=== PATIENT | female | born 1985 | race Caucasian/White ===

== ENCOUNTER 2023-09-02 08:13 | Emergency (ER) | payer OTHER, SELFPAY ==
[2023-09-02 08:25] VITALS: BP 135/86; PULSE 83; RESP 16; TEMP 36.3; O2SAT 99; BMI 23.4
--- NOTE | 2023-09-02 08:50 | ED_ITS ---
HPI - General Adult General Date Seen: 09/02/23 Chief complaint: Weakness Stated complaint: trouble breathing Time Seen by Provider: 09/02/23 08:18 Source: patient and family (Mother) Mode of arrival: ambulatory Limitations: no limitations History of Present Illness HPI narrative: Patient is a 38-year-old female presenting to emergency department for fatigue, inability to sleep. She states over the past 4 days she has been having difficulty sleeping and has not had much of an appetite. She has her mother states the patient has had upper respiratory symptoms since sinusitis for the pa st 2 weeks and was started on Augmentin yesterday. The patient's mother thinks there has been improvement. The patient states she is not things related to her upper respiratory infection at all it is states her breathing is upside down.Patient had chronic pain and was started on this breathing exercise called breathing connective work. She was started on this by her physical therapist. She states it has help with the chronic pain. Last night she was having diffuse body pain and took a muscle relaxer and she feels like everything is upside down. She states that now when she breathes it feels like her diaphragm and lungs are backwards and when she breathes everything goes down instead of up. She has tried to explain her symptoms today multiple times but improving difficulty understanding exactly what she is trying to say. Patient does states she is feeling a lot of anxiety and feels like she needs something for her anxiety. Related Data Home Medications Medication Instructions Recorded Confirmed amoxicillin-pot clavulanate .ROUTE 09/02/23 cyclobenzaprine 5 mg tablet 5 mg PO 3XD PRN 09/02/23 09/02/23 Previous Rx's Medication Instructions Recorded alprazolam 0.5 mg tablet (Xanax) 0.5 mg PO BID PRN #7 tabs 09/02/23 zolpidem 5 mg tablet (Ambien) 5 mg PO QHS #7 tabs 09/02/23 Allergies Allergy/AdvReac Type Severity Reaction Status Date / Time No Known Drug Allergies Allergy Verified 09/02/23 08:23 Review of Systems Status of ROS: Reports: 10 or more systems reviewed and unremarkable except as noted in History and below PFSH PFSH Social History Smoking Status: Never smoker Do you use any of these nicotine containing products: None Second hand tobacco smoke exposure: No How often do you have a drink containing alcohol: monthly or less How many standard drinks containing alcohol do you have on a typical day: 1 or 2 How often do you have six or more drinks on one occasion: Never AUDIT-C Alcohol total score: 1 Non-prescribed substance use: denies use service: No Exam Narrative: Exam Narrative: Const: Well-nourished, Well-developed, in mild distress Eyes: PERRL, no conjunctival injection, and symmetrical lids HENT: Atraumatic external nose and ears. Moist mucous membranes. Neck: Symmetric, trachea midline, No thyromegaly. CVS: RRR, No murmurs or gallops. Peripheral pulses 2+ and equal in all extremities RESP: Unlabored respiratory effort. Clear to auscultation bilaterally. GI: Nontender/Nondistended, No rebound or guarding. MSK:Extremities w/o deformity, Normal Active ROM Skin: Warm, Dry. No rashes or lesions. Neuro: Normal Muscle tone, No focal neurological deficits. Psych: Awake, Alert, & Oriented x3. Appropriate mood and affect. Const: Vital Signs, click to edit/add: Vital Signs - 24 hr 09/02/23 08:25 09/02/23 10:52 Temperature 97.4 F L 97.4 F L Pulse Rate [Pulse Oximeter] 83 83 Respiratory Rate 16 16 Blood Pressure [Ri ght Upper Arm] 135/86 135/86 Pulse Oximetry 99 Oxygen Delivery Me thod Room Air Course Vital Signs Vital signs: Initial Vital Signs Temperature 97.4 F L 09/02/23 08:25 Temperature Source Temporal Artery Scan 09/02/23 08:25 Pulse Rate 83 09/02/23 08:25 Pulse Rhythm Regular 09/02/23 08:25 Respiratory Rate 16 09/02/23 08:25 Blood Pressure 135/86 09/02/23 08:25 Blood Pressure Mean 102 09/02/23 08:25 Blood Pressure Position Supine 09/02/23 08:25 Pulse Oximetry 99 09/02/23 08:25 Oxygen Delivery Method Room Air 09/02/23 08:25 Vital Signs Temperature 97.4 F L 09/02/23 08:25 Pulse Rate 83 09/02/23 08:25 Respiratory Rate 16 09/02/23 08:25 Blood Pressure 135/86 09/02/23 08:25 Pulse Oximetry 99 09/02/23 08:25 Oxygen Delivery Method Room Air 09/02/23 08:25 Temperature 97.4 F L 09/02/23 10:52 Pulse Rate 83 09/02/23 10:52 Respiratory Rate 16 09/02/23 10:52 Blood Pressure 135/86 09/02/23 10:52 Pulse Oximetry 99 09/02/23 08:25 Oxygen Delivery Method Room Air 09/02/23 08:25 Medications Administered Medications: Discontinued Medications Generic Name Dose Route Start Last Admin Trade Name Jason PRN Reason Stop Dose Admin Lorazepam 0.5 mg 09/02/23 08:47 09/02/23 08:55 Lorazepam 0.5 Mg Tablet PO 09/02/23 08:48 0.5 mg ONCE ONE Administration Medical Decision Making MDM Narrative Medical decision making narrative: Patient is a 38-year-old female presenting for what sounds like is a chief complaint of anxiety. It is difficult to fully determine what she is concerned about but she did specifically states she is feeling anxious and wants that addressed. His breathing issues she is describing is difficult to comprehend at this time and her vitals are stable with normal lung sounds. We will do a CBC and BMP along with given Ativan for her anxiety. After the Ativan she is feeling less anxious was still states he is unable to sleep. CBC BMP showed no concerning findings. At this point I am not sure what is causing her symptoms. It seems like the main issue is insomnia and anxiety. Initially was given a script for a few pills of Ativan but she states she prefer Xanax based on her family members doing better on Xanax. Also give her 7 days of Ambien. She needs to follow up with her primary care provider. She is aware of this. She will be discharged home. Lab Data Labs: Lab Results 09/02/23 Range/Units 09:00 WBC 8.02 (4.50-11.00) K/uL RBC 4.85 (4.00-5.20) m/uL Hgb 13.0 (12.0-16.0) gm/dL Hct 39.8 (33.0-51.0) % MCV 82 (80-100) fL MCH 27 (26-34) pg MCHC 33 (32-36) gm/dL RDW Coeff of Camila 13.9 (11.5-15.5) % Plt Count 316 (140-440) K/uL Neut % (Auto) 69.1 (42.0-72.0) % Lymph % (Auto) 20.4 (20-44) % Grant % (Auto) 9.9 (0.0-11.0) % Eos % (Auto) 0.2 (0.0-7.0) % Baso % (Auto) 0.2 (0.0-3.0) % Neut # (Auto) 5.53 (1.7-7.0) K/uL Lymph # (Auto) 1.64 (0.90-2.90) K/uL Grant # (Auto) 0.80 (0.00-0.90) K/UL Eos # (Auto) 0.02 (0.00-0.50) K/uL Baso # (Auto) 0.02 (0.00-0.30) K/uL Abs Immat Gran (auto) 0.02 (0.00-0.30) K/uL Imm/Tot Granulo (auto) 0.2 % Sodium 137 (135-149) mmol/L Potassium 4.0 (3.6-5.1) mmol/L Chloride 105 (96-114) mmol/L Carbon Dioxide 19 L (20-32) mmol/L Anion Gap 13 (7-15) mEq/L BUN 8 (5-24) mg/dL Creatinine 0.7 (0.5-1.5) mg/dL Estimated Creat Clear 77.50 Estimated GFR 113 ml/min Glucose 103 (60-115) mg/dL Calcium 9.5 (8.4-10.6) mg/dL Discharge Plan Discharge Clinical Impression: Anxiety Insomnia Qualifiers: Insomnia type: unspecified Qualified Code(s): G47.00 - Insomnia, unspecified Patient Disposition: Home, Self-Care Condition: Stable Instructions: Anxiety (ED) Additional Instructions: Take the medications as prescribed. Follow-up with primary care provider about being started on anxiety medicine. Prescriptions: New zolpidem [Ambien] 5 mg tablet 5 mg PO QHS Qty: 7 0RF Rx Instructions: may repeat once if no response in 30-60 minutes alprazolam [Xanax] 0.5 mg tablet 0.5 mg PO BID PRNQty: 7 0RF No Action cyclobenzaprine 5 mg tablet 5 mg PO 3XD PRN amoxicillin-pot clavulanate [Augmentin] .ROUTE Follow Up/Referrals: Jennifer Garcia CNP [Primary Care Provider] - Stand Alone Forms: MyHealth Info Instructions
[2023-09-02] MEDS: LORazepam 0.5 MG TABLET PO (08:55)
--- OUTSIDE RECORDS SUMMARY | 2023-09-02 08:57 | XMS_ITS | Clinical Summary ---
Author Name Unknown Organization [employer] [facility] Address [place], [place] [address] Care Team Providers Care Plaster Foreman Name Role Phone , No Primary Primary Care Provider Unavailabl e Social History Tobacco Use Types Packs/Day Years Used Date Smoking Tobacco: Never Assessed Sex and Gender Information Value Date Recorded Sex Assigned at Not on file Gender Identity Not on file Sexual Orientation Not on file Plan of Treatment Not on file Care Teams Plaster Foreman Relationship Specialty Start Date End Date , No Primary . PCP - General 04/12/08
--- OUTSIDE RECORDS SUMMARY | 2023-09-02 08:57 | XMS_ITS | Encounter Summary ---
Author Name Unknown Organization [place] Address [address] [place] [address] Care Team Providers Care Radiologic Electronic Specialist Name Role Phone Don Watson MD Primary Care Provider Marya Tovar MD Primary Care Provider + Obdulio Menjivar PA-C Unavailable Mindi Donnelly MD Unavailable Jennifer Hull MD Unavailable [phone] Obdulio Menjivar PA-C Unavailable Jennifer Hull MD Unavailable [phone] No Ref-Primary, Physician Primary Care Provider Obdulio Menjivar PA-C Unavailable Jennifer Hull MD Unavailable [phone] Janie Hawk CNM Unavailable Shauna Jeffery CRIMINAL DEFENSE ATTORNEY CNM Unavailab le Fatuma Luke CRIMINAL DEFENSE ATTORNEY CNM Unavailable Sarwat Sandy DO Unavailable [phone] [facility] re Provider Encounter Details Date Type Department Care Team (Late st Contact Info) Description 09/17/2010 MyC Medical Advice [address] [address] [facility] [place] Social History Tobacco Use Types Packs/Day Years Used Date Smoking Tobacco: Never Alcohol Use Standard Drinks/Week Comments No 0 (1 standard drink = 0.6 oz pur e alcohol) Sex and Gender Information Value Date Recorded Sex Assigned at Not on file Gender Identity Not on file Sexual Orientation Not on file documented as of this encounter Plan of Treatment Not on file documented as of this encounter Visit Diagnoses Not on filedocumented in this encounter Care Teams Radiologic Electronic Specialist Relationship Specialty Start Date End Date Don Watson MD [facility] [address] [place] [address] PCP - General 03/05/06 07/10/12 Marya Tovar MD [facility] [address] [facility] [address] [place] [address] PCP - General teacher emotionally impaired 07/11/12 03/22/19 Obdulio Menjivar PA-C [address] [place] [address] PCP - Assigned PCP 06/26/18 09/24/18 [place] [address] [place] [address] PCP - Assigned PCP 10/31/17 06/25/18 [place] [address] [place] [address] PCP - Assigned PCP 09/25/18 10/25/18 No Ref-Primary, Physician PCP - General 07/28/19 02/26/23 [facility] [address] [place] [address] PCP - General 02/27/23 Obdulio Menjivar PA-C [address] [place] [address] Assigned PCP 06/26/18 09/24/18 [place] [address] [place] [address] Assigned PCP 09/25/18 09/23/19 Obdulio Menjivar PA-C [address] [place] [address] Assigned PCP 09/24/19 03/30/20 [place] [address] [place] [address] Assigned PCP 03/31/20 09/27/21 Janie Hawk CNM [address] [place] [address] Assigned OBGYN Provider 06/14/2007/06 [place] [address] [place], [facility] [address] [place] [address] Assigned OBGYN Provider 07/07/20 Fatuma Luke APRN CNM [address] [place] [address] Assigned OBGYN Provider 10/19/21 [place] [address] [place] [address] Assigned PCP 10/12/21 documented as of this encounter
--- OUTSIDE RECORDS SUMMARY | 2023-09-02 08:57 | XMS_ITS | Encounter Summary ---
Author Name Unknown Organization [place] Address [address] [place] [address]. [place] [address] Care Team Providers Care System Support Developer Name Role Phone No Ref-Primary, Physician Primary Care Provider Shauna Jeffery BRONZE CHASER CNM Unavailab le Fatuma Luke BRONZE CHASER CNM Unavailable [phone] Sarwat Sandy DO Unavailable [phone] [facility] Primary Ca re Provider Encounter Details Date Type Department Care Team (Late st Contact Info) Description 10/13/2021 Orders Only [facility] [address] [place] [address] Margaret Ashley History of iron deficiency anemia Social History Tobacco Use Types Packs/Day Years Used Date Smoking Tobacco: Never Smokeless Tobacco: Never Alcohol Use Standard Drinks/Week Comments Yes 0 (1 standard drink = 0.6 oz pur e alcohol) social PHQ-2 Answer Date Recorded PHQ-2 Score 0 10/07/2021 Sex and Gender Information Value Date Recorded Sex Assigned at Not on file Gender Identity Not on file Sexual Orientation Not on file COVID-19 Exposure Response Date Recorded In the last month, have you been in contact with someone who was confirmed or suspected to have Coronavirus / COVID-19? No / Unsure 10/16/2021 12:53 PM ELECTRIC SPOT WELDER documented as of this encounter Plan of Treatment Not on file documented as of this encounter Procedures Procedure Name Priority Date/Time Associated Diagnosis Comments CBC WITH PLATELETS AND REFLEX TO IRON STUDIES Routine 10/13/2021 2:39 PM ELECTRIC SPOT WELDER History of iron deficiency anemia EXTRA GREEN TOP (LITHIUM HEPARIN) TUBE Routine 10/13/2021 2:39 PM ELECTRIC SPOT WELDER History of iron deficiency anemia CBC WITH PLATELETS AND REFLEX TO IRON STUDIES Routine 10/13/2021 2:39 PM ELECTRIC SPOT WELDER History of iron deficiency anemia IRON AND IRON BINDING CAPACITY Routine 10/13/2021 2:39 PM ELECTRIC SPOT WELDER History of iron deficiency anemia FERRITIN Routine 10/13/2021 2:39 PM ELECTRIC SPOT WELDER History of iron deficiency anemia documented in this encounter Results * (ABNORMAL) Ferritin (10/13/2021 2:39 PM ELECTRIC SPOT WELDER) Ferritin 5(L) 12 - 150 ng/mL 10/14/2021 11:55 AM ELECTRIC SPOT WELDER [facility] Blood STRUCTURE OF LEFT UPPER LIMB / Unknown Venipuncture / Unknown 10/13/2021 2:39 PM ELECTRIC SPOT WELDER 10/13/2021 2:56 PM ELECTRIC SPOT WELDER Fatuma Luke APRN, CNM LAB - BLOOD [facility] [address] Lab (no room number, 1st floor of clinic) [place] [address], [facility] [phone] * (ABNORMAL) Iron & Iron Binding Capacity (10/13/2021 2:39 PM ELECTRIC SPOT WELDER) Iron 43 35 - 180 ug/dL 10/14/2021 11:54 AM ELECTRIC SPOT WELDER [facility] Iron Binding Capacity 379 240 - 430 ug/dL 10/14/2021 11:54 AM ELECTRIC SPOT WELDER [facility] Iron Sat Index 11(L) 15 - 46 % 10/14/2021 11:54 AM ELECTRIC SPOT WELDER [facility] Blood STRUCTURE OF LEFT UPPER LIMB / Unknown Venipuncture / Unknown 10/13/2021 2:39 PM ELECTRIC SPOT WELDER 10/13/2021 2:56 PM ELECTRIC SPOT WELDER Fatuma Luke APRN [facility] LAB - BLOOD [facility] [address] Lab (no room number, [address] [facility] [place] [address], [facility] [phone] * Extra Green Top ([place] Heparin) Tube (10/13/2021 2:39 PM ELECTRIC SPOT WELDER) Hold Specimen JIC 10/13/2021 3:47 PM ELECTRIC SPOT WELDER [facility] Blood STRUCTURE OF LEFT UPPER LIMB / Unknown Venipuncture / Unknown 10/13/2021 2:39 PM ELECTRIC SPOT WELDER 10/13/2021 2:39 PM ELECTRIC SPOT WELDER Fatuma Luke APRN [facility] LAB - BLOOD [facility] [address], [address] [place] [address], [facility] [phone] * (ABNORMAL) CBC with Platelets and Reflex to Iron Studies (10/13/2021 2:39 PM ELECTRIC SPOT WELDER) WBC Count 8.3 4.0 - 11.0 10e3/uL 10/13/2021 3:02 PM ELECTRIC SPOT WELDER [facility] RBC Count 3.94 3.80 - 5.20 10e6/uL 10/13/2021 3:02 PM ELECTRIC SPOT WELDER [facility] Hemoglobin 10.5(L) 11.7 - 15.7 g/dL 10/13/2021 3:02 PM ELECTRIC SPOT WELDER [facility] Hematocrit 33.4(L) 35.0 - 47.0 % 10/13/2021 3:02 PM ELECTRIC SPOT WELDER [facility] MCV 85 78 - 100 fL 10/13/2021 3:02 PM ELECTRIC SPOT WELDER [facility] MCH 26.6 26.5 - 33.0 pg 10/13/2021 3:02 PM ELECTRIC SPOT WELDER [facility] MCHC 31.4(L) 31.5 - 36.5 g/dL 10/13/2021 3:02 PM ELECTRIC SPOT WELDER [facility] RDW 15.6(H) 10.0 - 15.0 % 10/13/2021 3:02 PM ELECTRIC SPOT WELDER [facility] Platelet Count 280 150 - 450 10e3/uL 10/13/2021 3:02 PM ELECTRIC SPOT WELDER [facility] Blood STRUCTURE OF LEFT UPPER LIMB / Unknown Venipuncture / Unknown 10/13/2021 2:39 PM ELECTRIC SPOT WELDER 10/13/2021 2:39 PM ELECTRIC SPOT WELDER Fatuma Luke APRN, CNM LAB - BLOOD [facility] [address], [address] [place] [address] [phone] documented in this encounter Visit Diagnoses Diagnosis History of iron deficiency anemia Personal history of diseases of blood and blood-forming organs documented in this encounter Additional Health Concerns Assessment Noted Time PHQ-9 Depression Total Score: 0 10/08/19 8:00 AM ELECTRIC SPOT WELDER documented as of this encounter Care Teams System Support Developer Relationship Specialty Start Date End Date No Ref-Primary, Physician PCP - General 07/28/19 02/26/23 [facility] [address] [place] [address] PCP - General 02/27/23 Shauna Jeffery APRN CNM [address] [address] [facility] [address] [place] [address] Assigned OBGYN Provider 07/07/20 Fatuma Luke APRN CNM [address] [place] [address] Assigned OBGYN Provider 10/19/21 [place] [address] [place] [address] Assigned PCP 10/12/21 documented as of this encounter
--- OUTSIDE RECORDS SUMMARY | 2023-09-02 08:57 | XMS_ITS | Encounter Summary ---
Author Name Unknown Organization [facility] Address [address] [place] [address]. [place] [address] Care Team Providers Care Public Area Supervisor Name Role Phone Fatuma Luke APRN CNM Unavailable [phone] Sarwat Sandy DO Unavailable [phone] [facility] [place] Primary Sc re Provider Reason for Visit * Reason Comments Hematuria Encounter Details Date Type Department Care Team (Late st Contact Info) Description 02/27/2023 8:24 AM CDT - 02/27/2023 12:38 PM T [facility] Emergency Dept [address] [place] [address] Pepe Nj MD [facility] [address] [place] [address] Right flank pain; Shortness of breath Discharge Disposition: Home or Self Care Social History Tobacco Use Types Packs/Day Years [...] Exposure Response Date Recorded In the last 10 days, have foster wisdom been in contact with someone who was confirmed or suspected to have Coronavirus/COVID-19? No / Unsure 02/27/2023 6:22 AM CDT documented as of this encounter Last Filed Vital Signs Vital Sign Reading Time Taken Comments Blood Pressure 115/71 02/27/2023 12:38 PM CDT Pulse 62 02/27/2023 12:38 PM CDT Temperature 36.1 ??C (97 ??F) 02/27/2023 6:25 AM CDT Respiratory Rate 16 02/27/2023 6:25 AM CDT Oxygen Saturation 99% 02/27/2023 12:38 PM CDT Inhaled Oxygen Concentration - - Weight 54.4 kg (120 lb) 02/27/2023 6:25 AM CDT Height 152.4 cm (5') 02/27/2023 6:25 AM CDT Body Mass Index 23.44 02/27/2023 6:25 AM CDT documented in this encounter Discharge Instructions * Discharge Instructions* Pepe Nj MD - 02/27/2023 11:35 AM CDT -Take acetaminophen 500 to 1000 mg by mouth every 4 to 6 hours as needed for pain or fever. Do not take more than 4000 mg in 24 hours. Do not take within 6 hours of another acetaminophen containing medication such as norco (vicodin) or percocet. - Take ibuprofen 600 to 800 mg by mouth every 6 to 8 hours as needed for pain or fever Discharge Instructions Shortness of breath You have been seen today for shortness of breath. At this time, your provider has found no signs that your shortness of breath is due to a serious or life- threatening condition, (or you have declinedmore testing and/or admission to the hospital). However, sometimes there is a serious problem that does not show up right away. Your evaluation today may not be complete and you may need further testing and evaluation. Generally, every Emergency Department visit should have a follow-up clinic visit with either a primary or a specialty clinic/provider. Please follow-up as instructed by your emergency provider today. Return to the Emergency Department if: Your shortness of breath changes, gets worse, starts to happen more often, or comes with less activity. You are newly chest pain You get very weak or tired. You pass out or faint. You have any new symptoms, like fever, cough, numb legs, or you cough up blood. You have anything else that worries you. Until you follow-up with your regular provider, please do the following: Take one aspirin daily unless you have an allergy or are told not to by your provider. If a stress test appointment has been made, go to the appointment. If you have questions, contact your regular provider. Follow-up with your regular provider/clinic as directed; this is very important. If you were given a prescription for medicine here today, be sure to read all of the information (including the package insert) that comes with your prescription. This will include important information about the medicine, its side effects, and any warnings that you need to know about. The pharmacist who fills the prescription can provide more information and answer questions you may have about the medicine. If you have questions or concerns that the pharmacist cannot address, please call or return to the Emergency Department. Remember that you can always come back to the Emergency Department if you are not able to see your regular provider in the amount of time listed above, if you get any new symptoms, or if there is anything that worries you. documented in this encounter Medications at Time of Discharge Medication Sig Dispensed Refills Start Date End Date fish oil-omega-3 fatty acids 1000 MG capsule Take 2 capsules (2 g) by mouth daily 0 10/07/2021 Magnesium Gluconate (MAGNESIUM 27 PO) 0 Probiotic Product (PROBIOTIC ADVANCED PO) 0 Vitamin D, Cholecalciferol, 25 MCG (1000 UT) TABS 0 documented as of this encounter ED Notes * Elis Collins - 02/27/2023 8:31 AM CDT Applied monitoring devices (BP, and pulse ox) onto Patient. * Marita Machado RN - 02/27/2023 6:24 AM CDT Pt reports she in on her menstrual period. Pt reports the last couple days she has had blood in herurine. Pt c/o pain to right flank * Pepe Nj MD - 02/27/2023 6:22 AM CDT History Chief Complaint: Hematuria HPI Kayla Bloom is a 37 year old female with a past medical history significant for heavy periods who presents to the ED via/accompanied by self with a chief complaint of intermittent mild to moderate nonradiating right flank pain, lightheadedness, mild exertional shortness of breath onset approximately 2 days ago. She reports at times her flank pain is worse when she is lying prone and lifting her leg. The patient reports that approximate 1 week ago she drinks significant amount while away dani week and with friends and family. She reports her period started approximate 1 week ago as well and is generally heavy. She states her last 2 days she began to develop the a forementioned symptoms t hinking that she was potentially anemic secondary to her menstruation. She denies chest pain, cough, fevers, chills, changes in bowel movements. She thought she may have seen some blood in her urine but denies urgency or frequency. She denies history of cardiac disease, VTE/DVT and reports that she does not take any control. Patient Dors is alcohol use. She denies tobacco use. Independent Historian: History provided by the patient Review of External Notes: See MDM ROS: Review of Systems Full ROS completed and negative other than pertinent positives and negatives noted in HPI Allergies: No Known Allergies Medications: fish oil-omega-3 fatty acids 1000 MG capsule Magnesium Gluconate (MAGNESIUM 27 PO) Probiotic Product (PROBIOTIC ADVANCED PO) Vitamin D, Cholecalciferol, 25 MCG (1000 UT) TABS Past Medical History: Past Medical History: Diagnosis Date ??? Anemia ??? Anxiety 09/26/2018 ??? Cervical high risk HPV (human papillomavirus) test positive 07/28/2019 ??? PAP SMEAR CERVIX W LGSIL 03/05/2006 ??? PONV (postoperative nausea and vomiting) Past Surgical History: Past Surgical History: Procedure Laterality Date ??? C/SECTION, LOW TRANSVERSE 07/24/10 , Low Transverse ??? SECTION 07/26/2012 Procedure: SECTION; Repeat SECTION ; Surgeon: Marya Tovar MD; Location: [facility] L+D ??? SECTION N/A 08/20/2014 Procedure: SECTION; Surgeon: Candido Chambers MD; Location: L+D ??? [facility] HAND/FINGER SURGERY UNLISTED broken metacarpal, 7th grade Family History: family history includes Cancer in her mother; Lipids in her father; Melanoma in her father; Mental Illness in her mother, sister, and sister. Social History: reports that she has never smoked. She has never used smokeless tobacco. She reports current alcohol use. She reports that she does not use drugs. PCP: No Ref-Primary, Physician Physical Exam Patient Vitals for the past 24 hrs: BP Temp Temp src Pulse Resp SpO2 Height Weight 02/27/23 0919 -- -- -- -- -- 96 % -- -- 02/27/23 0904 112/71 -- -- -- -- 100 % -- -- 02/27/23 0840 113/76 -- -- 65 -- 100 % -- -- 02/27/23 0834 132/79 -- -- -- -- 99 % -- -- 02/27/23 0625 120/66 97 ??F (36.1 ??C) Temporal 75 16 98 % 1.524 m (5') 54.4 kg (120 lb) Physical Exam Constitutional: Well developed, nontox appearance Head: Atraumatic. Neck: no stridor Eyes: no scleral icterus Cardiovascular: RRR, 2+ bilat radial, DP pulses Pulmonary/Chest: nml resp effort, Clear BS bilat Abdominal: ND, soft, NT, no rebound or guarding : no CVA tenderness bilat Back: Nontender, unable to reproduce the patient's pain Ext: Warm, well perfused, no edema Neurological: A&O, symmetric facies, moves ext x4 Skin: Skin is warm and dry. Psychiatric: Behavior is normal. Thought content normal. Nursing note and vitals reviewed. Emergency Department Course ECG: ECG results from 02/27/23 EKG 12-lead, tracing only Value Systolic Blood Pressure Diastolic Blood Pressure Ventricular Rate 64 Atrial Rate 64 WV Interval 134 QRS Duration 84 QT 410 QTc 422 P Lee 32 R AXIS 83 T Lee 61 Interpretation ECG Sinus rhythm Normal ECG No previous ECGs available Imaging: XR Chest 2 Views Preliminary Result IMPRESSION: Negative chest. Report per radiology unless otherwise specified in report or noted in MDM Laboratory: Labs Ordered and Resulted from Time of ED Arrival to Time of ED Departure ROUTINE UA WITH MICROSCOPIC REFLEX TO CULTURE - Abnormal Result Value Color Urine Straw Appearance Urine Clear Glucose Urine Negative Bilirubin Urine Negative Ketones Urine Negative Specific [place] Urine 1.007 Blood Urine Negative pH Urine 5.5 Protein Albumin Urine Negative Urobilinogen Urine Normal Nitrite Urine Negative Leukocyte Esterase Urine Negative Bacteria Urine Few (*) Mucus Urine Present (*) RBC Urine 0 WBC Urine <1 Squamous Epithelials Urine 2 (*) CBC WITH PLATELETS AND DIFFERENTIAL - Abnormal WBC Count 5.3 RBC Count 4.93 Hemoglobin 13.8 Hematocrit 43.3 MCV 88 MCH 28.0 MCHC 31.9 RDW 15.8 (*) Platelet Count 261 % Neutrophils 60 % Lymphocytes 32 % Monocytes 8 % Eosinophils 0 % Basophils 0 % Immature Granulocytes 0 NRBCs per 100 WBC 0 Absolute Neutrophils 3.1 Absolute Lymphocytes 1.7 Absolute Monocytes 0.4 Absolute Eosinophils 0.0 Absolute Basophils 0.0 Absolute Immature Granulocytes 0.0 Absolute NRBCs 0.0 HCG QUALITATIVE URINE - Normal hCG Urine Qualitative Negative COMPREHENSIVE METABOLIC PANEL - Normal Sodium 139 Potassium 4.2 Chloride 106 Carbon Dioxide (CO2) 23 Anion Gap 10 Urea Nitrogen 13.1 Creatinine 0.72 Calcium 9.3 Glucose 90 Alkaline Phosphatase 58 AST 28 ALT 15 Protein Total 7.6 Albumin 4.6 Bilirubin Total 0.5 GFR Estimate >90 TROPONIN T, HIGH SENSITIVITY - Normal Troponin T, High Sensitivity <6 Procedures Emergency Department Course & Assessments: Interventions: Medications 0.9% sodium chloride BOLUS (0 mLs Intravenous Stopped 02/27/23 1100) Independent Interpretation (X-rays, CTs, rhythm strip): See MDM Consultations/Discussion of Management or Tests: None Social Determinants of Health affecting care: See MDM Disposition: The patient was discharged to home. Impression & Plan [facility] Diagnoses: none Medical Decision Makin37 year old female presenting w/ right flank discomfort Social determinants affecting patient's health include: Alcohol use potentially increasing risk forcomplications related to alcohol use I reviewed medical records from senior java ui developer office visit on 10/13/2022 for an overview of the patient's reproductive history. Menstruations DDx includes anemia, muscle strain, UTI, pyelonephritis, flank pain NOS, hepatitis. Doubt PE given patient is PERC negative. EKG significant for normal sinus rhythm without acute ischemic findings onmy independent interpretation. Labs significant for no remarkable abnormality including normal hemoglobin level. Imaging sig for no pneumothoraces on my independent rotation, no acute cardiopulmonarydisease per radiology as noted above. IV fluids given as noted above. Patient's vital signs remained stable throughout her emergency department stay. Possible muscle strain as etiology of patient's leg pain otherwise no evidence of acutely dangerous or life-threatening etiology. Given reassuring wor k-up, at this time I feel the pt is safe for discharge. Recommendations given regarding follow up with PCP in 1 week for persistent symptoms and return to the emergency department as needed for new or worsening symptoms. Patient counseled on all results, disposition and diagnosis. They are understanding and agreeable to plan. Patient discharged in stable condition. Diagnosis: ICD-10-CM 1. Right flank pain R10.9 2. Shortness of breath R06.02 Discharge Medications: New Prescriptions No medications on file 02/27/2023 Pepe Nj MD Vaughn, Christopher E, MD 02/27/23 1151 documented in this encounter Plan of Treatment Not on file documented as of this encounter Procedures Procedure Name Priority Date/Time Associated Diagnosis Comments XR CHEST 2 VIEWS STAT 02/27/2023 10:5 7 AM CDT CBC WITH PLATELETS AND DIFFERENTIAL STAT 02/27/2023 9:49 AM CDT TROPONIN T, HIGH SENSITIVITY STAT 02/27/2023 9:49 AM CDT CBC WITH PLATELETS & DIFFERENTIAL STAT 02/27/2023 9:49 AM CDT COMPREHENSIVE METABOLIC PANEL STAT 02/27/2023 9:49 AM CDT EKG 12-LEAD, TRACING ONLY STAT 02/27/2023 9:32 AM CDT HCG QUALITATIVE URINE STAT 02/27/2023 6:27 AM CDT ROUTINE UA WITH MICROSCOPIC REFLEX TO CULTURE STAT 02/27/2023 6:27 AM CDT documented in this encounter Results * XR Chest 2 Views (02/27/2023 10:57 AM CDT) Anatomical Region Laterality Modality Chest Digital Radiogra phy 02/27/2023 10:5 7 AM CDT Impressions 02/27/2023 1:51 PM CDT IMPRESSION: Negative chest. Narrative 02/27/2023 1:51 PM CDT EXAM: XR CHEST 2 VIEWS LOCATION: [facility] DATE: 02/27/2023 INDICATION: Dyspnea on exertion. COMPARISON: None. Procedure Note Jamal Masterson MD - 02/27/2023 EXAM: XR CHEST 2 VIEWS LOCATION: [facility] DATE: 02/27/2023 INDICATION: Dyspnea on exertion. COMPARISON: None. IMPRESSION: Negative chest. Pepe Nj MD IMG DIAGNOSTIC I MAGING ORDERABLES * (ABNORMAL) CBC with platelets and differential (02/27/2023 9:49 AM CDT) WBC Count 5.3 4.0 - 11.0 10e3/uL 02/27/2023 9:59 AM CDT [facility] RBC Count 4.93 3.80 - 5.20 10e6/uL 02/27/2023 9:59 AM CDT [facility] Hemoglobin 13.8 11.7 - 15.7 g/dL 02/27/2023 9:59 AM CDT [facility] Hematocrit 43.3 35.0 - 47.0 % 02/27/2023 9:59 AM CDT [facility] MCV 88 78 - 100 fL 02/27/2023 9:59 AM CDT [facility] MCH 28.0 26.5 - 33.0 pg 02/27/2023 9:59 AM CDT [facility] MCHC 31.9 31.5 - 36.5 g/dL 02/27/2023 9:59 AM CDT [facility] RDW 15.8(H) 10.0 - 15.0 % 02/27/2023 9:59 AM CDT [facility] Platelet Count 261 150 - 450 10e3/uL 02/27/2023 9:59 AM CDT [facility] % Neutrophils 60 % 02/27/2023 9:59 AM CDT [facility] % Lymphocytes 32 % 02/27/2023 9:59 AM CDT [facility] % Monocytes 8 % 02/27/2023 9:59 AM CDT [facility] % Eosinophils 0 % 02/27/2023 9:59 AM CDT [facility] % Basophils 0 % 02/27/2023 9:59 AM CDT [facility] % Immature Granulocytes 0 % 02/27/2023 9:59 AM CDT [facility] NRBCs per 100 WBC 0 <1 /100 023 9:59 AM CDT [facility] Absolute Neutrophils 3.1 1.6 - 8.3 10e3/uL 02/27/2023 9:59 AM CDT [facility] Absolute Lymphocytes 1.7 0.8 - 5.3 10e3/uL 02/27/2023 9:59 AM CDT [facility] Absolute Monocytes 0.4 0.0 - 1.3 10e3/uL 02/27/2023 9:59 AM CDT [facility] Absolute Eosinophils 0.0 0.0 - 0.7 10e3/uL 02/27/2023 9:59 AM CDT [facility] Absolute Basophils 0.0 0.0 - 0.2 10e3/uL 02/27/2023 9:59 AM CDT [facility] Absolute Immature Granulocytes 0.0 <=0.4 10e3/uL 02/27/2023 9:59 AM CDT [facility] Absolute NRBCs 0.0 10e3/uL 02/27/2023 9:59 AM CDT [facility] Blood BLOOD SPECIMEN / Unknown Venipuncture / Unknown 02/27/2023 9:49 AM CDT 02/27/2023 9:55 AM CDT Pepe Nj MD LAB - BLOOD ERICK SHANKAR [facility] Organization Address City/State/ZIP Co de Phone Number [facility] [address] Lab (1st floor, no room number) [place] [address], [facility] [phone] * Troponin T, High Sensitivity (02/27/2023 9:49 AM CDT) [facility] Troponin T, High Sensitivity <6 <=14 ng/L 02/27/2023 10:20 AM CDT LABORATORY Comment: Either a High Sensitivity Troponin T baseline (0 hours) value = 100 ng/L, or an increase in High Sensitivity Troponin T = 7 ng/L at 2 hours compared to 0 hours (2-0 hours), suggests myocardial injury, and urgent clinical attention is required. ?? If the 2-0 hours increase is <7 ng/L, a High Sensitivity Troponin T result above gender-specific reference ranges warrants further evaluation. Recommendations for further evaluation include correlation with clinical decision-making tool (e.g., HEART), a 3rd High Sensitivity Troponin T test 2 hours after the 2nd (a 20% change from baseline would represent concern), admission for observation, close PCC/cardiology follow-up, or urgent outpatient provocative testing. Blood BLOOD SPECIMEN / Unknown Venipuncture / Unknown 02/27/2023 9:49 AM CDT 02/27/2023 9:55 AM CDT Pepe Nj MD [facility] Organization Address City/State/ZIP Co de Phone Number [facility] Acute Care Lab [address] [facility] Lab (1st floor, no room number) [place] [address], [facility] [phone] * Comprehensive metabolic panel (02/27/2023 9:49 AM CDT) [facility] Sodium 139 136 - 145 mmol/L 02/27/2023 10:20 AM CDT LABORATORY Potassium 4.2 3.4 - 5.3 mmol/L 02/27/2023 10:20 AM CDT LABORATORY Chloride 106 98 - 107 mmol/L 02/27/2023 10:20 AM CDT LABORATORY Carbon Dioxide (CO2) 23 22 - 29 mmol/L 02/27/2023 10:20 AM CDT LABORATORY Anion Gap 10 7 - 15 mmol/L 02/27/2023 10:20 AM CDT LABORATORY Urea Nitrogen 13.1 6.0 - 20.0 mg/dL 02/27/2023 10:20 AM CDT [facility] Creatinine 0.72 0.51 - 0.95 mg/dL 02/27/2023 10:20 AM CDT [facility] Calcium 9.3 8.6 - 10.0 mg/dL 02/27/2023 10:20 AM CDT [facility] Glucose 90 70 - 99 mg/dL 02/27/2023 10:20 AM CDT [facility] Alkaline Phosphatase 58 35 - 104 U/L 02/27/2023 10:20 AM CDT [facility] AST 28 0 - 45 U/L 02/27/2023 10:20 AM CDT [facility] Comment:Reference intervals for this test were updated on 02/01/2023 to more accurately reflect our healthy population. There may be differences in the flagging of prior results with similar values performed with this method. Interpretation of those prior results can be made in the context of the updated reference intervals. ALT 15 0 - 50 U/L 02/27/2023 10:20 AM CDT [facility] Comment:Reference intervals for this test were updated on 02/01/2023 to more accurately reflect our healthy population. There may be differences in the flagging of prior results with similar values performed with this method. Interpretation of those prior results can be made in the context of the updated reference intervals. Protein Total 7.6 6.4 - 8.3 g/dL 02/27/2023 10:20 AM CDT [facility] Albumin 4.6 3.5 - 5.2 g/dL 02/27/2023 10:20 AM CDT [facility] Bilirubin Total 0.5 <=1.2 mg/dL 02/27/2023 10:20 AM CDT [facility] GFR Estimate >90 >60 mL/min/1. 73m2 02/27/2023 10:20 AM CDT [facility] Blood BLOOD SPECIMEN / Unknown Venipuncture / Unknown 02/27/2023 9:49 AM CDT 02/27/2023 9:55 AM CDT Pepe Nj MD LAB - BLOOD ERICK SHANKAR [facility] Organization Address City/State/ZIP Co de Phone Number [facility] [address] Lab (1st floor, no room number) [place] [address], [facility] [phone] * EKG 12-lead, tracing only (02/27/2023 9:32 AM CDT) Systolic Blood Pressure mmHg RADIOLOGY RESULTS Diastolic Blood Pressure mmHg RADIOLOGY RESULTS Ventricular Rate 64 BPM RAD IOLOGY RESULTS Atrial Rate 64 BPM RADIOLOG Y RESULTS WV Interval 134 ms RADIOLOG Y RESULTS QRS Duration 84 ms RADIOLO GY RESULTS QT 410 ms RADIOLOGY RESULTS QTc 422 ms RADIOLOGY RESULTS P Lee 32 degrees RADIOLOGY RESULTS R AXIS 83 degrees RADIOLOGY RESULTS T Lee 61 degrees RADIOLOGY RESULTS Interpretation ECG Sinus rhythm Normal ECG No previous ECGs available Confirmed by - EMERGENCY ROOM, PHYSICIAN ([id number]), editorial assistant ALEX ULLOA ([id number]) on 03/01/2023 7:16:49 AM RADIOLOGY RESULTS 02/27/2023 9:32 AM CDT 03/01/2023 7:16 AM CDT Pepe Nj MD ECG ORDERABLES RADIOLOGY RESULTS * HCG qualitative urine (02/27/2023 6:27 AM CDT) Pathologist [facility] hCG Urine Qualitative Negative Negative AMARIS 02/27/2023 6:54 AM CDT LABORATORY Comment:This test is for scr eening purposes. Results should be interpreted along with the clinical picture. Confirmation testing is available if warranted by ordering [id number], HCG Quantitative . Urine MID-STREAM URINE SPECIMEN / Unknown Non-blood Collection / Unknown 02/27/2023 6:27 AM CDT 02/27/2023 6:44 AM CDT Pepe Nj MD LAB - URINE ORDE RABLES LABORATORY [facility] [address] Lab (1st floor, no room number) [place] [address], [facility] [phone] * (ABNORMAL) UA with Microscopic reflex to Culture (02/27/2023 6:27 AM CDT) Color Urine Straw Colorless, Straw, Light Yellow, Yellow 02/27/2023 6:55 AM CDT LABORATORY Appearance Urine Clear Clear 02/28/20 6:55 AM CDT LABORATORY Glucose Urine Negative Negative mg/dL 02/27/2023 6:55 AM CDT LABORATORY Bilirubin Urine Negative Negative 6:55 AM CDT LABORATORY Ketones Urine Negative Negative mg/dL 02/27/2023 6:55 AM CDT LABORATORY Specific [place] Urine 1.007 1.003 - 1.035 02/27/2023 6:55 AM CDT LABORATORY Blood Urine Negative Negative 02/27/2023 6:55 AM CDT LABORATORY pH Urine 5.5 5.0 - 7.0 02/27/2023 6:55 AM CDT LABORATORY Protein Albumin Urine Negative Negative mg/dL 02/27/2023 6:55 AM CDT LABORATORY Urobilinogen Urine Normal Normal, 2.0 mg/dL 02/27/2023 6:55 AM CDT LABORATORY Nitrite Urine Negative Negative 02/27/2023 6:55 AM CDT LABORATORY Leukocyte Esterase Urine Negative Negative 02/27/2023 6:55 AM CDT LABORATORY Bacteria Urine Few(A) None Seen /HPF 02/27/2023 6:55 AM CDT LABORATORY Mucus Urine Present(A) None Seen /LPF 02/27/2023 6:55 AM CDT LABORATORY RBC Urine 0 <=2 /HPF 02/27/2023 6:55 AM CDT LABORATORY WBC Urine <1 <=5 /HPF 02/27/2023 6:55 AM CDT LABORATORY Squamous Epithelials Urine 2(H) <=1 /HPF 02/27/2023 6:55 AM CDT LABORATORY Urine MID-STREAM URINE SPECIMEN / Unknown Non-blood Collection / Unknown 02/27/2023 6:27 AM CDT 02/27/2023 6:44 AM CDT Narrative LABORATORY - 02/27/2023 6:55 AM CDT Urine Culture not indicated Pepe Nj MD LAB - URINE ERICK SHANKAR [facility] Organization Address City/State/ZIP Co de Phone Number LABORATORY [facility] [address] Lab (1st floor, no room number) [place] [address], [facility] [phone] documented in this encounter Visit Diagnoses Diagnosis Right flank pain Abdominal pain, unspecified site Shortness of breath documented in this encounter Administered Medications Inactive Administered Medications - up to 3 most recent administrations Medication Order MAR Action Action Date Dose Rate Site 0.9% sodium chloride BOLUS Intravenous, 1,000 mL, ONCE, at 1,000 mL/hr, Administer over 1 Hours, On 02/27/23 at 0930, For 1 dose $New Bag 02/27/2023 9:49 AM CDT 1,000 mLs 1000 mL/hr documented in this encounter Active and Recently Administered Medications Times are shown in CDT. Scheduled Medication Order 02/25/2023 02/26/2023 02/27/2023 0.9% sodium chloride BOLUS (COMPLETED) Intravenous, 1,000 mL, ONCE, at 1,000 mL/hr, Administer over 1 Hours, On 02/27/23 at 0930, For 1 dose 0949 ($New Bag - Pro vider: Alena Pickard RN)1100 (Stopped - Provider: Alena Pickard RN) documented in this encounter Additional Health Concerns Assessment Noted Time PHQ-9 Depression Total Score: 0 10/08/19 22 8:00 AM CONSULTING ANALYST documented as of this encounter Care Teams Public Area Supervisor Relationship Specialty Start Date End Date Clinic - [facility] [place] [address] [place] [address] PCP - General 02/27/23 Fatuma Luke APRN CNM [address] [place] [address] Assigned OBGYN Provider 10/19/21 [place] [address] [place] [address] Assigned PCP 10/12/21 documented as of this encounter
--- OUTSIDE RECORDS SUMMARY | 2023-09-02 08:57 | XMS_ITS | Clinical Summary ---
Author Name Unknown Organization [place] Address [address] [place] [address] Care Team Providers Care Overnight Associate Name Role Phone Sarwat Sandy DO Unavailable [phone] Clinic - [facility] Primary [place] re Provider Allergies No known active allergies Medications Medication Sig Dispensed Refills Start Date End Date Status Magnesium Gluconate (MAGNESIUM 27 PO) 0 Active Probiotic Product (PROBIOTIC ADVANCED PO) 0 Active Vitamin D, Cholecalciferol, 25 MCG (1000 UT) TABS 0 Active fish oil-omega-3 fatty acids 1000 MG capsule Take 2 capsules (2 g) by mouth daily 0 10/07/2021 Active Active Problems Problem Noted Date Diagnosed Date Cervical high risk HPV (human papillomavirus) te st positive 07/28/2019 Overview: 03/05/06 LSIL pap @ age 20 04/19/06 [place] Bx & ECC: ARCHANA 1 11/2006, 05/2007, 2007, 2008, 2010, 2011, 2012 - NIL paps 2015 NIL pap, neg HR HPV 07/28/19 NIL pap, + HR HPV (not 16/18). Plan 1 year cotest 06/14/20 NIL pap, + HR HPV (not 16/18). Plan colp bef 09/14/20 02/05/21 Lost to follow-up for pap tracking 10/13/21 NIL pap, Neg HPV. Plan cotest in 1 year 10/01/22 Reminder mychart 10/30/22 Reminder call-VM box full. Will attempt again on Wednesday11/02/22 Vm full. Reminder letter will be sent 12/03/22 Lost to follow up Anxiety 09/26/2018 Iron deficiency anemia due to chronic blood loss 05/12/2018 Flow murmur 10/27/2017 Not immune to rubella 12/26/2013 Overview: Do you wish to do the replacement in the background? yes Previous section 05/13/2012 Papanicolaou smear of cervix with low grade squamous intraepithelial lesion (LGSIL) 05/18/2008 Condyloma acuminatum 04/19/2006 Resolved Problems Problem Noted Date Diagnosed Date Resolved Date Muscle weakness (generalized) 05/25/2021 07/22/2021 Abdominal weakness 05/25/2021 Hip flexor tightness 05/25/2021 021 S/P 08/20/2014 10/27/2017 Abdominal pain 08/06/2014 10/27/2017 High-risk 02/18/2014 10/28/19 18 Encounter for supervision of other normal 12/26/2013 10/27/2017 Overview: Diagnosis updated by automated process. Provider to review and confirm. S/P section 07/26/2012 014 High-risk 05/13/2012 12/27/19 14 Overview: (Problem list name updated by automated process. Provider to review and confirm.) CARDIOVASCULAR SCREENING; LD L GOAL LESS THAN 160 06/22/2010 10/27/2017 1St trimester screening 01/16/201011/23 Overview: Normal results Supervision of normal first 11/25/2009 12/21/2011 Infectious mononucleosis 11/28/200702/2018 Mild dysplasia of cervix 05/03/200602/2008 Papanicolaou smear of cervix with low grade squamous intraepithelial lesion (LGSIL) 03/05/2006 11/28/2007 Overview: Referred to OBGYN for colp. Immunizations Name Administration Dates Next Due Influenza (IIV3) PF 07/22/2012,06/05/2010 Influenza Vaccine >6 months,quad, PF 06/21/2018, 06/15/2014 MMR 08/23/2014 TDAP Vaccine (Adacel) 06/28/2014,11/22/2006 Family History Medical History Relation Comments Lipids Father Melanoma Father Cancer Mother skin cancer - sq uamous Mental Illness Mother Mental Illness Sister 1 Mental Illness Sister 2 Relation Status Comments Daughter Alive Father Alive Maternal Grandfather Maternal Grandmother (Age 98) Mother Alive Paternal Grandfather Paternal Grandmother Sister 1 Alive x 3 Sister 2 Son 1 Alive Son 2 Alive Social History Tobacco Use Types Packs/Day Years Used Date Smoking Tobacco: Never Smokeless Tobacco: Never Tobacco Cessation:Counseling Given: No Alcohol Use Standard Drinks/Week Comments Yes 0 (1 standard drink = 0.6 oz pur e alcohol) social PHQ-2 Answer Date Recorded PHQ-2 Score 0 10/07/2021 Adolescent Education Answer Date Record ed Getting School Help Needed Not on file 06/09 Sex and Gender Information Value Date Recorded Sex Assigned at Not on file Gender Identity Not on file Sexual Orientation Not on file Last Filed Vital Signs Vital Sign Reading [...] Mass Index 23.44 02/27/2023 6:25 AM CDT Plan of Treatment Health Maintenance Due Date Last Done Comments ADVANCE CARE PLANNING 1984 HEPATITIS B IMMUNIZATION (1 of 3 - 3-dose series) 1984 COVID-19 Vaccine (#1) 1984 HEPATITIS C SCREENING 2002 ANNUAL REVIEW OF HM ORDERS 10/07/2022 10/07/2021 HPV FOLLOW-UP 10/13/2022 10/13/2021, 05/24, 07/28/2019, Additional history exists PAP FOLLOW-UP 10/13/2022 10/13/2021, 05/24, 07/28/2019, Additional history exists YEARLY PREVENTIVE VISIT 10/13/2022 10/13/19 22, 06/14/2020, 06/14/2020, Additional history exists INFLUENZA VACCINE (#1) 2023 8, 06/15/2014, 07/22/2012, Additional history exists PHQ-2 (once per calendar year) 2023 10/07/2021, 10/07/2021, 06/14/2020, Additional history exists DTAP/TDAP/TD IMMUNIZATION (3 - Td or Tdap) 06/28/2024 06/28/2014, 11/22/2006 HIV SCREENING Completed 12/25/2013, 11/21, 11/25/2009 PAP Discontinued 10/13/2021, 05/24, 07/28/2019, Additional history exists HPV IMMUNIZATION Aged Out No longer e ligible based on patient's age to complete this topic IPV IMMUNIZATION Aged Out No longer e ligible based on patient's age to complete this topic MENINGITIS IMMUNIZATION Aged Out No l onger eligible based on patient's age to complete this topic Pneumococcal Vaccine: Pediatrics (0 to 5 Years) and At-Risk Patients (6 to 64 Years) Aged Out No longer eligible based on patient's age to complete this topic RSV MONOCLONAL ANTIBODY Aged Out No l onger eligible based on patient's age to complete this topic Advance Directives For more information, please contact: [phone] Latest Code Status on File Code Status Date Activated Date Inactivated Comments Full Code 07/29/2012 9:06 AM 02/27/2023 6:22 AM Care Teams Overnight Associate Relationship Specialty Start Date End Date [facility] [address] [place] [address] PCP - General 02/27/23 [place] [address] [place] [address] Assigned PCP 10/12/21
--- OUTSIDE RECORDS SUMMARY | 2023-09-02 08:57 | XMS_ITS | Encounter Summary ---
Author Name Unknown Organization [facility] Address [address] [place] [address]. [place] [address] Care Team Providers Care Art Critic Name Role Phone Jennifer [place] MD Unavailable [phone] Ref-Primary, Physician Primary Care Provider Obdulio Menjivar PA-C Unavailable [phone] Jennifer [place] MD Unavailable [phone] Janie Hawk CNM Unavailable [phone] Shauna Jeffery NAIL PULLER CNM Unavailab le Fatuma Luke NAIL PULLER CNM Unavailable Sarwat Sandy DO Unavailable [phone] Clinic - [facility] Primary [place] re Provider Encounter Details Date Type Department Care Team (Late st Contact Info) Description 07/19/2019 MyC Medical Advice [facility] Women's [facility] [address] [place] [phone] Alla Golden Social History Tobacco Use Types Packs/Day Years Used Date Smoking Tobacco: Never Smokeless Tobacco: Never Alcohol Use Standard Drinks/Week Comments Yes 0 (1 standard drink = 0.6 oz pur e alcohol) social PHQ-2 Answer Date Recorded PHQ-2 Score 0 08/31/2018 Sex and Gender Information Value Date Recorded Sex Assigned at Not on file Gender Identity Not on file Sexual Orientation Not on file documented as of this encounter Plan of Treatment Not on file documented as of this encounter Visit Diagnoses Not on filedocumented in this encounter Additional Health Concerns Assessment Noted Time PHQ-9 Depression Total Score: 8 09/21/19 19 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 documented as of this encounter Care Teams Art Critic Relationship Specialty Start Date End Date No Ref-Primary, Physician PCP - General 07/28/19 02/26/23 [facility] [address] [place] [address] PCP - General 02/27/23 [place] [address] [place] [address] Assigned PCP 09/25/18 09/23/19 Obdulio Menjivar PA-C [address] [place] [address] Assigned PCP 09/24/19 03/30/20 [place] [address] [place] [address] Assigned PCP 03/31/20 09/27/21 Janie [place] CNM [address] [place] [address] Assigned OBGYN Provider 06/14/2007/06 Shauna Jeffery APRN CNM [address] [place], [address] [address] Assigned OBGYN Provider 07/07/20 Fatuma Luke APRN CNM [address] [place] [address] Assigned OBGYN Provider 10/19/21 [place] [address] [place] [address] Assigned PCP 10/12/21 documented as of this encounter
--- OUTSIDE RECORDS SUMMARY | 2023-09-02 08:57 | XMS_ITS | Encounter Summary ---
Author Name Unknown Organization [place] Address [address] [place] [address] Care Team Providers Care Pen And Pencil Repairer Name Role Phone No Ref-Primary, Physician Primary Care Provider Fatuma Luke APRN CNM Unavailable [phone] Sarwat Sandy DO Unavailable [phone] Clinic - [facility] Primary [place] re Provider Encounter Details Date Type Department Care Team (Late st Contact Info) Description 12/29/2021 MyC Medical Advice [facility] Women's [facility] [address] [facility] [address] [place] [phone] Sima Fall RN Social History Tobacco Use Types Packs/Day Years [...] Total Score: 0 10/08/19 22 8:00 AM 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
--- OUTSIDE RECORDS SUMMARY | 2023-09-02 08:57 | XMS_ITS | Referral Summary ---
Author Name Unknown Organization [place] Address [address] [place] [address] Care Team Providers Care Assistant Director Of Security Name Role Phone Sarwat Sandy DO Unavailable [phone] Clinic - [facility] Primary [place] re Provider Allergies No known active allergies [...] 03/05/06 LSIL pap @ age 20 04/19/06 [place] Bx & ECC: ARCHANA 1 11/2006, 05/2007, [...] 06/15/2014 MMR 08/23/2014 TDAP Vaccine (Adacel) 06/28/2014,11/22/2006 Social History Tobacco Use Types Packs/Day Years [...] 02/27/2023 6:25 AM CDT Plan of Treatment Not on file Advance Directives For more information, please contact: [phone] Latest Code Status on File Code Status Date Activated Date Inactivated Comments Full Code 07/29/2012 9:06 AM 02/27/2023 6:22 AM Care Teams Assistant Director Of Security Relationship Specialty Start Date End Date Clinic - [facility] [address] [place] [address] PCP - General 02/27/23 [place] [address] [place] [address] Assigned PCP 10/12/21
--- OUTSIDE RECORDS SUMMARY | 2023-09-02 08:57 | XMS_ITS | Clinical Summary ---
Author Name Unknown Organization [facility] Address [address] [place] [address] Care Team Providers Care Channeler Insole Name Role Phone Unavailable Primary Care Provider Unavailabl e Source Comments You are receiving this document as you are listed as the primary care provider,follow-up provider, or the patient has been referred to you for consultation.This is in compliance with the Medicare and[facility] Hospitalcaid EHR Incentive Program,which states Providers who transition their patient to another setting of careor provider of care or refers their patient to another provider of care shouldprovide summary care record for each transition of care or referral. [facility] Allergies No known active allergies Medications Medication Sig Dispensed Refills Start Date End Date Status ferrous sulfate 325 (65 Fe) MG tablet Take 325 mg by mouth daily with breakfast. 0 Active Social History Tobacco Use Types Packs/Day Years Used Date Smoking Tobacco: Never Assessed Sex and Gender Information Value Date Recorded Sex Assigned at Not on file Gender Identity Not on file Sexual Orientation Not on file Plan of Treatment Health Maintenance Due Date Last Done Comments Cervical Cancer Screening Due 1984 Hep C Screening (Preventive Services) 1984 HepB (1) 1984 COVID-19 Vaccine (#1) 1984 HIV Screening (Preventive Services) 2000 Adult Preventive Visit 2002 Influenza (#1) 2023 06/21/2018, 05/24, 07/22/2012, Additional history exists DTaP/Tdap/Td (3 - Tdap) 06/28/2024 06/28/2014, 11/22 Zoster/Shingles (1 of 2) 2034 HPV Vaccine Aged Out No longer eligi ble based on patient's age to complete this topic HepA Aged Out No longer eligi ble based on patient's age to complete this topic Hib Aged Out No longer eligi ble based on patient's age to complete this topic IPV (Polio) Aged Out No longer eligi ble based on patient's age to complete this topic MCV4 Aged Out No longer eligi ble based on patient's age to complete this topic Pneumococcal Aged Out No longer eligi ble based on patient's age to complete this topic
--- OUTSIDE RECORDS SUMMARY | 2023-09-02 08:57 | XMS_ITS | Encounter Summary ---
Author Name Unknown Organization [facility] Address [address] [place] [address]. [address] Care Team Providers Care Pediatric Physician Assistant Name Role Phone Fatuma Luke APRN CNM Unavailable [phone] Sarwat Sandy DO Unavailable [phone] [facility] Primary Ca re Provider Encounter Details Date Type Department Care Team (Latest Contact Info) Description 02/27/2023 Travel Social History Tobacco Use Types Packs/Day Years [...] Recorded In the last 10 days, have yo u been in contact with someone who was confirmed or suspected to have Coronavirus/COVID-19? 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
--- OUTSIDE RECORDS SUMMARY | 2023-09-02 08:58 | XMS_ITS | Encounter Summary ---
Author Name Unknown Organization [place] Address [address] [place] [address] Care Team Providers Care Heat Treatment Technician Name Role Phone Don Watson MD Primary Care Provider Marya Tovar MD Primary Care Provider + Obdulio Menjivar PA-C Unavailable Mindi Donnelly MD Unavailable Jennifer [place] MD Unavailable [phone] Obdulio Menjivar PA-C Unavailable Jennifer [place] MD Unavailable [phone] No Ref-Primary, Physician Primary Care Provider Obdulio Menjivar PA-C Unavailable Jennifer [place] MD Unavailable [phone] Janie [place] CNM Unavailable Shauna Jeffery LENDING MANAGER CNM Unavailab le Fatuma Luke LENDING MANAGER CNM Unavailable Sarwat Sandy DO Unavailable [phone] [facility] re Provider Encounter Details Date Type Department Care Team (Late st Contact Info) Description 02/24/2010 MyC Medical Advice [address] [phone] [place] [place] Social History Tobacco Use Types Packs/Day Years Used Date Smoking Tobacco: Never Alcohol Use Standard Drinks/Week Comments No 0 (1 standard drink = 0.6 oz pur e alcohol) Comments Yes Sex and Gender Information Value Date Recorded Sex Assigned at Not on file Gender Identity Not on file Sexual Orientation Not on file documented as of this encounter Plan of Treatment Not on file documented as of this encounter Visit Diagnoses Not on filedocumented in this encounter Care Teams Heat Treatment Technician Relationship Specialty Start Date End Date Don Watson MD [facility] [address] [address] PCP - General 03/05/06 07/10/12 Marya Tovar MD [facility] [address] [facility] [address] PCP - General engineering document control clerk 07/11/12 03/22/19 Obdulio Menjivar PA-C [address] [place] [address] PCP - Assigned PCP 06/26/18 09/24/18 [place] [address] [place] [address] PCP - Assigned PCP 10/31/17 06/25/18 [place] [address] [place] [address] PCP - Assigned PCP 09/25/18 10/25/18 No Ref-Primary, Physician PCP - General 07/28/19 02/26/23 [facility] [address] [place] [address] PCP - General 02/27/23 Obdulio Menjivar PA-C [address] [place] [address] Assigned PCP 06/26/18 09/24/18 [place] [address] [place] [address] Assigned PCP 09/25/18 09/23/19 Obdulio Menjivar PA-C [address] [place] [address] Assigned PCP 09/24/19 03/30/20 [place] [address] [place] [address] Assigned PCP 03/31/20 09/27/21 Janie Hawk CNM [address] [place] [address] Assigned OBGYN Provider 06/14/2007/06 Shauna Jeffery APRN CNM [address] [place], [facility] [address] [place] [address] Assigned OBGYN Provider 07/07/20 Fatuma Luke APRN CN [address] [place] [address] Assigned OBGYN Provider 10/19/21 [place] [address] [place] [address] Assigned PCP 10/12/21 documented as of this encounter
--- OUTSIDE RECORDS SUMMARY | 2023-09-02 08:58 | XMS_ITS | Encounter Summary ---
Author Name Unknown Organization [place] Address [address] [place] [address] Care Team Providers Care Tile Ditcher Name Role Phone Don Watson MD Primary Care Provider Marya Tovar MD Primary Care Provider + Obdulio Menjivar PA-C Unavailable Mindi Donnelly MD Unavailable Jennifer [place] MD Unavailable [phone] Obdulio Menjivar PA-C Unavailable Jennifer [place] MD Unavailable [phone] No Ref-Primary, Physician Primary Care Provider Obdulio Menjivar PA-C Unavailable Jennifer [place] MD Unavailable [phone] Janie Hawk CNM Unavailable Shauna Jeffery PRICER CNM Unavailab le Fatuma Luke PRICER CNM Unavailable Sarwat Sandy DO Unavailable [phone] [facility] Ca re Provider Encounter Details Date Type Department Care Team (Late st Contact Info) Description 09/11/2010 MyC Medical Advice [facility] Women's [facility] [address] [place] [phone] Marya Tovar MD [address] [place] [address] [place] [address] [place] [address] Social History Tobacco Use Types Packs/Day Years [...] on filedocumented in this encounter Care Teams Tile Ditcher Relationship Specialty Start Date End Date Don Watson MD [facility] [address] [address] PCP - General 03/05/06 07/10/12 Marya Tovar MD [facility] [address] [facility] [address] [place] [address] PCP - General manager renewable energy 07/11/12 03/22/19 Obdulio Menjivar PA-C [address] [place] [address] PCP - Assigned PCP 06/26/18 09/24/18 [place] [address] [place] [address] PCP - Assigned PCP 10/31/17 06/25/18 [place] [address] [place] [address] PCP - Assigned PCP 09/25/18 10/25/18 No Ref-Primary, Physician PCP - General 07/28/19 02/26/[address] [address] PCP - General 02/27/23 Obdulio Menjivar PA-C [address] [place] [address] Assigned PCP 06/26/18 09/24/18 [place] [address] [place] [address] Assigned PCP 09/25/18 09/23/19 Obdulio Menjivar PA-C [address] [place] [address] Assigned PCP 09/24/19 03/30/20 [place] [address] [place] [address] Assigned PCP 03/31/20 09/27/21 Janie [place] CNM [address] [place] [address] Assigned OBGYN Provider 06/14/2007/06 [facility]ery [facility] [address] [address] [facility] [address] [place] [address] Assigned OBGYN Provider 07/07/20 Fatuma Luke APRN CNM [address] [place] [address] Assigned OBGYN Provider 10/19/21 [place] [address] [place] [address] Assigned PCP 10/12/21 documented as of this encounter
--- OUTSIDE RECORDS SUMMARY | 2023-09-02 08:58 | XMS_ITS | Encounter Summary ---
Author Name Unknown Organization [facility] Address [address] [place] [address] Care Team Providers Care Construction Sales Representative Name Role Phone Don Watson MD Primary Care Provider Marya Tovar MD Primary Care Provider + Obdulio Menjivar PA-C Unavailable Mindi Donnelly MD Unavailable Jennifer [place] MD Unavailable [phone] Obdulio Menjivar PA-C Unavailable Jennifer [place] MD Unavailable [phone] Ref-Primary, Physician Primary Care Provider Obdulio Menjivar PA-C Unavailable Jennifer [place] MD Unavailable [phone] Janie Hawk CNM Unavailable Shauna Jeffery INTELLECTUAL PROPERTY PARALEGAL CNM Unavailab le Fatuma Luke INTELLECTUAL PROPERTY PARALEGAL CNM Unavailable Sarwat Sandy DO Unavailable [phone] [facility] re Provider Encounter Details Date Type Department Care Team (Late st Contact Info) Description 07/03/2010 [facility] [address] [facility] [place] [address] Marya Tovar MD [address] [place] [address] [place] [id number] Social History Tobacco Use Types Packs/Day Years [...] on filedocumented in this encounter Care Teams Construction Sales Representative Relationship Specialty Start Date End Date Don Watson MD [facility] [address] [place] [address] PCP - General 03/05/06 07/10/12 Marya Tovar MD [address] [address] PCP - General 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 and taxi instructor 07/11/12 03/22/19 Obdulio Menjivar PA-C [address] [place] [address] PCP - Assigned PCP 06/26/18 09/24/18 [place] [address] [facility] [place] [place] [address] PCP - Assigned PCP 10/31/17 06/25/18 [place] [address] [place] [address] PCP - Assigned PCP 09/25/18 10/25/18 No Ref-Primary, Physician PCP - General 07/28/19 02/26/23 [facility] [address] [place], [place] [address] [address] PCP - General 02/27/23 Obdulio Menjivar PA-C [address] [place] [address] Assigned PCP 06/26/18 09/24/18 [place] [address] [place] [address] Assigned PCP 09/25/18 09/23/19 Obdulio Menjivar PA-C [address] [place] [address] Assigned PCP 09/24/19 03/30/20 [place] [address] [place] [address] Assigned PCP 03/31/20 09/27/21 Janie Hawk CNM [address] [place], [place] [phone] Assigned OBGYN Provider 06/14/2007/06 [facility] [address] [place] [address], [address] [address] Assigned OBGYN Provider 07/07/20 Fatuma Luke APRN CNM [address] [place] [address] Assigned OBGYN Provider 10/19/21 [place] [address] [place] [address] Assigned PCP 10/12/21 documented as of this encounter
[2023-09-02 09:00] VITALS: BP 114/78; PULSE 84; RESP 14; O2SAT 99
[2023-09-02 09:08] LABS: Basophils Absolute Auto 0.02 K/uL (0.00-0.30); Basophils Percent Auto 0.2 % (0.0-3.0); Eosinophils Absolute Auto 0.02 K/uL (0.00-0.50); Eosinophils Percent Auto 0.2 % (0.0-7.0); Hematocrit 39.8 % (33.0-51.0); Immature Granulocytes Abs Auto 0.02 K/uL (0.00-0.30); Immature Granulocytes Pct Auto 0.2 %; Lymphocytes Absolute Auto 1.64 K/uL (0.90-2.90); Lymphocytes Percent Auto 20.4 % (20-44); Mean Corpuscular HGB Conc 33 gm/dL (32-36); Mean Corpuscular Hemoglobin 27 pg (26-34); Mean Corpuscular Volume 82 fL (80-100); Monocytes Percent Auto 9.9 % (0.0-11.0); Neutrophils Absolute Auto 5.53 K/uL (1.7-7.0); Neutrophils Percent Auto 69.1 % (42.0-72.0); Platelet Count* 316 K/uL (140-440); RDW Coefficient of Variation % 13.9 % (11.5-15.5); Red Blood Count 4.85 m/uL (4.00-5.20); White Blood Count* 8.02 K/uL (4.50-11.00)
[2023-09-02 09:11] LABS: Slide Review Reflex No
[2023-09-02 09:15] VITALS: PULSE 89; RESP 12; O2SAT 100
[2023-09-02 09:36] LABS: Anion Gap 13 mEq/L (7-15); Blood Urea Nitrogen* 8 mg/dL (5-24); Calcium* 9.5 mg/dL (8.4-10.6); Carbon Dioxide* 19 mmol/L (20-32); Chloride* 105 mmol/L (96-114); Creatinine* 0.7 mg/dL (0.5-1.5); Estimated Glomerular Filt Rate 113 ml/min; Glucose* 103 mg/dL (60-115); Sodium* 137 mmol/L (135-149)
[2023-09-02 10:52] VITALS: BP 135/86; PULSE 83; RESP 16; TEMP 36.3
--- NOTE | 2023-09-02 10:53 | ED.NURSE ---
Called at left voicemail for [facility] in [facility], to confirm Ativan rx is cancelled and replaced by Xanax rx. Left callback number for any questions.
== END 2023-09-02 10:53 | disposition home or self-care (01) ==
PROVIDERS: Emergency Provider Student in an Organized Health Care Education/Training Program; PCP Nurse Practitioner Family
DX: F41.9 Anxiety disorder, unspecified (principal); G47.00 Insomnia, unspecified
CPT/HCPCS: 36415; 80048; 85025; 99283; A9270

== ENCOUNTER 2024-01-13 10:30 | Outpatient (CLI) | payer OTHER, SELFPAY ==
--- OUTSIDE RECORDS SUMMARY | 2024-01-13 10:33 | XMS_ITS | Clinical Summary ---
Author Organization [facility] Address [address] [place] [address]. 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 07/28/2019 Overview: 03/05/06 LSIL pap @ age 20 04/19/06 [place] Bx & ECC: ARCHANA 1 11/2006, 05/2007, [...] Done Comments ADVANCE CARE PLANNING 1984 HEPATITIS C SCREENING 2002 HEPATITIS B IMMUNIZATION (1 of 3 - 19+ 3-dose series) 2003 ANNUAL REVIEW OF HM ORDERS 10/07/2022 10/07/2021 HPV FOLLOW-UP 10/13/2022 10/13/2021, 05/24, 07/28/2019, Additional history exists PAP FOLLOW-UP 10/13/2022 10/13/2021, 05/24, 07/28/2019, Additional history exists YEARLY PREVENTIVE VISIT 10/13/2022 10/13/19 22, 06/14/2020, 06/14/2020, Additional history exists COVID-19 Vaccine ( season) 2023 PHQ-2 (once per calendar year) 2023 10/07/2021, 10/07/2021, 06/14/2020, Additional history exists INFLUENZA VACCINE (Season Ended) 2024 06/21/2018, 06/15/2014, 07/22/2012, Additional history exists DTAP/TDAP/TD IMMUNIZATION (3 - Td or Tdap) 06/28/2024 06/28/2014, 11/22/2006 GLUCOSE 02/27/2026 02/27/2023, 11/22, 09/21/2018, Additional history exists HIV SCREENING Completed 12/25/2013, 11/21, 11/25/2009 PAP [...] on patient's age to complete this topic Procedures Procedure Name Priority Date/Time Associated Diagnosis Comments COMPREHENSIVE METABOLIC PANEL STAT 02/27/2023 9:49 AM CDT HPV HIGH RISK TYPES DNA CERVICAL Routine 10/13/2021 1:50 PM BEHAVIORAL THERAPIST Cervical cancer screening GYNECOLOGIC CYTOLOGY Routine 10/13/2021 1:50 PM BEHAVIORAL THERAPIST Cervical cancer screening HIV ANTIGEN ANTIBODY COMBO Routine 12/25/2013 2:16 PM CDT Supervision of other normal , first trimester [V22.1] from Last 3 Months or Most Recently Relevant to Health Maintenance Results * Comprehensive metabolic panel (02/27/2023 9:49 AM CDT) [facility] Sodium 139 136 - 145 mmol/L 02/27/2023 10:20 AM CDT [facility] Potassium 4.2 3.4 - 5.3 mmol/L 02/27/2023 10:20 AM CDT [facility] Chloride 106 98 - 107 mmol/L 02/27/2023 10:20 AM CDT [facility] Carbon Dioxide (CO2) 23 22 - 29 mmol/L 02/27/2023 10:20 AM CDT [facility] Anion Gap 10 7 - 15 mmol/L 02/27/2023 10:20 AM CDT [facility] Urea Nitrogen 13.1 6.0 - 20.0 [...] Nj MD LAB - BLOOD ERICK SHANKAR LABORATORY [facility] Acute Care Lab [address] Lab (1st floor, no room number) [place] [address], [facility] [phone] * Pap imaged thin layer diagnostic with HPV (select HPV order below) (10/13/2021 1:50 PM BEHAVIORAL THERAPIST) Interpretation Negative for Intraepithelial Lesion or Malignancy (NILM) 10/15/2021 2:13 PM BEHAVIORAL THERAPIST [facility] Comment Papanicolaou Test Limitations: Cervical cytology is a screening test with limited sensitivity, and regular screening is critical for cancer prevention. Pap tests are primarily effective for the diagnosis/prevent ion of squamous cell carcinoma, not adenocarcinoma or other cancers. 10/15/2021 2:13 PM BEHAVIORAL THERAPIST [facility] Specimen Adequacy Satisfactory for evaluation, endocervical/ken sformation zone component absent 10/15/2021 2:13 PM BEHAVIORAL THERAPIST [facility] Clinical Information none 10/15/2021 2:13 PM BEHAVIORAL THERAPIST [facility] Reflex Testing Yes regardless of result 10/15/2021 2:13 PM BEHAVIORAL THERAPIST [facility] Previous Abnormal? Yes 10/15/2021 2:13 PM BEHAVIORAL THERAPIST [facility] Performing Labs The technical component of this testing was completed at [facility] 10/15/2021 2:13 PM BEHAVIORAL THERAPIST [facility] Brushing CERVIX UTERI STRUCTURE / Unknown 10/13/2021 1:50 PM BEHAVIORAL THERAPIST 10/13/2021 2:37 PM BEHAVIORAL THERAPIST Comment:Pap imaged thin laye r diagnostic with HPV (select HPV order below)Answer REQUIRED pap questions below:LMP (date): Patient's last menstrual period was 09/29/2021 (approximate).PAP SOURCE: Cervical - EndocervicalPREVIOUS PAP RESULTS: Lab Results Component Value Date PAP NIL 06/14/2020 PERTINENT CLINICAL HISTORY: NONE Fatuma CARRENO - YORDY RITCH[facility] Specialty Lab [address] [facility], [address] [address], [facility] [phone] * HPV High Risk Types DNA Cervical (10/13/2021 1:50 PM BEHAVIORAL THERAPIST) Other HR HPV Negative Negative 10/17/2021 8:21 AM BEHAVIORAL THERAPIST [facility] HPV16 DNA Negative Negative 10/17/2021 8:21 AM BEHAVIORAL THERAPIST [facility] HPV18 DNA Negative Negative 10/17/2021 8:21 AM BEHAVIORAL THERAPIST [facility] FINAL DIAGNOSIS This patient's sample is negative for HPV DNA. This test was developed and its performance characteristics determined by the [facility], Molecular Diagnostics Laboratory. It has not been cleared or approved by the FDA. The laboratory is regulated under CLIA as qualified to perform high-complexity testing. This test is used for clinical purposes. It should not be regarded as investigational or for research. METHODOLOGY: The Graciela Gigi 4800 system uses automated extraction, simultaneous amplification of HPV (L1 region) and beta-globin, followed by real time detection of fluorescent labeled HPV and beta globin using specific oligonucleotide probes. The test specifically identified types HPV 16 DNA and HPV 18 DNA while concurrently detecting the rest of the high risk types (31, 33, 35, 39, 45, 51, 52, 56, 58, 59, 66 or 68). COMMENTS: This test is not intended for use as a screening device for woman under age 30 with normal cervical cytology. Results should be correlated with cytologic and histologic findings. Close clinical followup is recommended. 10/17/2021 8:21 AM BEHAVIORAL THERAPIST [facility] Brushing CERVIX UTERI STRUCTURE / Unknown Non-blood Collection / Unknown 10/13/2021 1:50 PM BEHAVIORAL THERAPIST 10/16/2021 9:30 AM BEHAVIORAL THERAPIST Fatuma Luke APRN, CNM LAB - BLOOD ORDERA BLES [facility] [address] [facility], [address] [address], [facility] [phone] * HIV Antigen Antibody Combo (12/25/2013 2:16 PM CDT) HIV Antigen Antibody Combo Nonreactive HIV-1 p24 Ag & HIV-1/HIV-2 Ab Not Detected NR [facility] Blood specimen (specimen) 12/25/2013 2:16 PM CDT 12/25/2013 2:21 PM CDT Marya Tovar MD LAB - BLOOD ERICK SHANKAR [facility] from Last 3 Months or Most Recently Relevant to Health Maintenance Advance Directives For more information, please contact: [phone] * Full Code (Latest Code Status on File) Date Activated Date Inactivated Comments 07/29/2012 9:06 AM 02/27/2023 6:22 AM Care Teams Room Service Associate Relationship Specialty Start Date End Date Clinic - [facility] [address] [place] [address] PCP - General 02/27/23 [place] [address] [place] [address] Assigned PCP 10/12/21
--- OUTSIDE RECORDS SUMMARY | 2024-01-13 10:33 | XMS_ITS | Referral Summary ---
Author Organization [facility] Address [address] [place] [address]. [place] [address] Care Team Providers Care Collaborative Physician Name Role Phone Sarwat Sandy DO Unavailable [facility] Primary [facility] re Provider Allergies No known [...] 03/05/06 LSIL pap @ age 20 04/19/06 [place] Bx & ECC: ARCHANA 1 11/2006, 05/2007, [...] CDT Plan of Treatment Not on file Procedures Procedure Name Priority Date/Time Associated Diagnosis Comments COMPREHENSIVE METABOLIC PANEL STAT 02/27/2023 9:49 AM CDT HPV HIGH RISK TYPES DNA CERVICAL Routine 10/13/2021 1:50 PM MULTIPLE NEEDLE STITCHER Cervical cancer screening GYNECOLOGIC CYTOLOGY Routine 10/13/2021 1:50 PM MULTIPLE NEEDLE STITCHER Cervical cancer screening HIV ANTIGEN ANTIBODY COMBO Routine 12/25/2013 2:16 PM CDT Supervision of other normal , first trimester [V22.1] from Last 3 Months or Most Recently Relevant to Health Maintenance Results * Comprehensive metabolic panel (02/27/2023 9:49 AM CDT) Sodium 139 136 - 145 mmol/L 02/27/2023 [...] Nj MD LAB - BLOOD ERICK SHANKAR [facility] Acute Care Lab [address] Lab (1st floor, no room number) [place] [address], [facility] [phone] * Pap imaged thin layer diagnostic with HPV (select HPV order below) (10/13/2021 1:50 PM MULTIPLE NEEDLE STITCHER) Interpretation Negative for Intraepithelial Lesion or Malignancy (NILM) 10/15/2021 2:13 PM MULTIPLE NEEDLE STITCHER [facility] Comment Papanicolaou Test Limitations: Cervical cytology is a screening test with limited sensitivity, and regular screening is critical for cancer prevention. Pap tests are primarily effective for the diagnosis/prevent ion of squamous cell carcinoma, not adenocarcinoma or other cancers. 10/15/2021 2:13 PM MULTIPLE NEEDLE STITCHER [facility] Specimen Adequacy Satisfactory for evaluation, endocervical/ken sformation zone component absent 10/15/2021 2:13 PM MULTIPLE NEEDLE STITCHER [facility] Clinical Information none 10/15/2021 2:13 PM MULTIPLE NEEDLE STITCHER [facility] Reflex Testing Yes regardless of result 10/15/2021 2:13 PM MULTIPLE NEEDLE STITCHER [facility] Previous Abnormal? Yes 10/15/2021 2:13 PM MULTIPLE NEEDLE STITCHER [facility] Performing Labs The technical component of this testing was completed at [facility] 10/15/2021 2:13 PM MULTIPLE NEEDLE STITCHER [facility] Brushing CERVIX UTERI STRUCTURE / Unknown 10/13/2021 1:50 PM MULTIPLE NEEDLE STITCHER 10/13/2021 2:37 PM MULTIPLE NEEDLE STITCHER Comment:Pap imaged thin laye r diagnostic with HPV (select HPV order below)Answer REQUIRED pap questions below:LMP (date): Patient's last menstrual period was 09/29/2021 (approximate).PAP SOURCE: Cervical - EndocervicalPREVIOUS PAP RESULTS: Lab Results Component Value Date PAP NIL 06/14/2020 PERTINENT CLINICAL HISTORY: NONE Fatuma Luke APRN [facility] - [facility] Specialty Lab [address] [facility], Room [address] [address], [facility] [phone] * HPV High Risk Types DNA Cervical (10/13/2021 1:50 PM MULTIPLE NEEDLE STITCHER) Other HR HPV Negative Negative 10/17/2021 8:21 AM MULTIPLE NEEDLE STITCHER [facility] HPV16 DNA Negative Negative 10/17/2021 8:21 AM MULTIPLE NEEDLE STITCHER [facility] HPV18 DNA Negative Negative 10/17/2021 8:21 AM MULTIPLE NEEDLE STITCHER [facility] FINAL DIAGNOSIS This patient's sample is negative for HPV DNA. This test was developed and its performance characteristics determined by the [facility], Molecular Diagnostics Laboratory. It has not been [...] clinical followup is recommended. 10/17/2021 8:21 AM MULTIPLE NEEDLE STITCHER [facility] Brushing CERVIX UTERI STRUCTURE / Unknown Non-blood Collection / Unknown 10/13/2021 1:50 PM MULTIPLE NEEDLE STITCHER 10/16/2021 9:30 AM MULTIPLE NEEDLE STITCHER Fatuma Luke PITA CNM LAB - BLOOD ORDERA BLES [facility] [address] [facility], Room [address] [place] [address], [facility] [phone] * HIV Antigen Antibody Combo (12/25/2013 2:16 PM CDT) HIV Antigen Antibody Combo Nonreactive HIV-1 p24 Ag & HIV-1/HIV-2 Ab Not Detected NR [facility] Blood specimen (specimen) 12/25/2013 2:16 PM CDT 12/25/2013 2:21 PM CDT Marya Tovar MD LAB - BLOOD CATRINADale SHANKAR [facility] from Last 3 Months or Most Recently Relevant to Health Maintenance Advance Directives For more information, please contact: [phone] * Full Code (Latest Code Status on File) Date Activated Date Inactivated Comments 07/29/2012 9:06 AM 02/27/2023 6:22 AM Care Teams Collaborative Physician Relationship Specialty Start Date End Date Clinic - [facility] [address] [place] [address] PCP - General 02/27/23 [place] [address] [place], [place] [address] Assigned PCP 10/12/21
--- OUTSIDE RECORDS SUMMARY | 2024-01-13 10:34 | XMS_ITS | Encounter Summary ---
Author Organization [facility] Address [address] [place] [address] Care Team Providers Care Glass Robot Operator Name Role Phone Don Watson MD Primary Care Provider Marya Tovar MD Primary Care Provider + Obdulio Menjivar PA-C Unavailable [phone] Mindi Donnelly MD Unavailable [phone] Jennifer Hull MD Unavailable [phone] Obdulio Menjivar PA-C Unavailable Jennifer Hull MD Unavailable [phone] No Ref-Primary, Physician Primary Care Provider Obdulio Menjivar PA-C Unavailable Jennifer Hull MD Unavailable [phone] Janie Hawk CNM Unavailable Shauna Jeffery HIGH SCHOOL COORDINATOR CNM Unavailab le Fatuma Luke HIGH SCHOOL COORDINATOR CNM Unavailable [phone] Sarwat Sandy DO Unavailable [phone] [facility] re Provider Encounter Details Date Type Department Care Team (Late st Contact Info) Description 02/24/2010 MyC Medical Advice [address] [address] [facility] Social History Tobacco Use Types Packs/Day Years [...] on filedocumented in this encounter Care Teams Glass Robot Operator Relationship Specialty Start Date End Date Don Watson MD [facility] [address] [address] PCP - General 03/05/06 07/10/12 Marya Tovar MD [facility] 8080 [facility] 200 [place] [address] PCP - General manager infusion 07/11/12 03/22/19 Obdulio Menjivar PA-C [address] [place] [address] PCP - Assigned PCP 06/26/18 09/24/18 [place] [address] [place] [address] PCP - Assigned PCP 10/31/17 06/25/18 [place] [address] [place] [address] PCP - Assigned PCP 09/25/18 10/25/18 No Ref-Primary, Physician PCP - General 07/28/19 02/26/23 [facility] [address] [place] [address] PCP - General 02/27/23 Obdulio Menjivar PA-C [address] [place] [address] Assigned PCP 06/26/18 09/24/18 [place] [address] [place] [address] Assigned PCP 09/25/18 09/23/19 Obdulio Menjivar PA-C [address] [place] [address] Assigned PCP 09/24/19 03/30/20 [place] [address] [place] [address] Assigned PCP 03/31/20 09/27/21 Janie Hawk CNM [address] [place] [address] Assigned OBGYN Provider 06/14/2007/06 Shauna Jeffery APRN CNM [address] [facility], [address] [address] Assigned OBGYN Provider 07/07/20 Fatuma Luke APRN CNJosue [address] [place] [address] Assigned OBGYN Provider 10/19/21 [place] [address] [place] [address] Assigned PCP 10/12/21 documented as of this encounter
--- OUTSIDE RECORDS SUMMARY | 2024-01-13 10:34 | XMS_ITS | Encounter Summary ---
Author Organization [facility] Address [address] [place] [address] Care Team Providers Care Land Commissioner Name Role Phone Don Watson MD Primary Care Provider Marya Tovar MD Primary Care Provider + Obdulio Menjivar PA-C Unavailable [phone] Mindi Donnelly MD Unavailable [phone] Jennifer Hull MD Unavailable [phone] Obdulio Menjivar PA-C Unavailable Jennifer Hull MD Unavailable [phone] No Ref-Primary, Physician Primary Care Provider Obdulio Menjivar PA-C Unavailable Jennifer Hull MD Unavailable [phone] Janie Hawk CNM Unavailable Shauna Jeffery REGULATORY SPECIALIST CNM Unavailab le Fatuma Luke REGULATORY SPECIALIST CNM Unavailable [phone] Sarwat Sandy DO Unavailable [phone] [facility] re Provider Encounter Details Date Type Department Care Team (Late st Contact Info) Description 09/11/2010 MyC Medical Advice [facility] [place] [address] [place] [address] Marya Tovar MD [address] [place], [place] [address] [address] Social History Tobacco Use Types Packs/Day Years [...] on filedocumented in this encounter Care Teams Land Commissioner Relationship Specialty Start Date End Date Don Watson MD [address] [address] PCP - General 03/05/06 07/10/12 Marya Tovar MD [address] [address] PCP - General tattoo artist 07/11/12 03/22/19 Obdulio Menjivar PA-C [address] [place] [address] PCP - Assigned PCP 06/26/18 09/24/18 [place] [address] [place] [address] PCP - Assigned PCP 10/31/17 06/25/18 [place] [address] [place] [address] PCP - Assigned PCP 09/25/18 10/25/18 No Ref-Primary, Physician PCP - General 07/28/19 02/26/23 [facility] [address] [place] [address] PCP - General 02/27/23 Obdulio Menjivar PA-C [address] [place] [address] Assigned PCP 06/26/18 09/24/18 [place] [address] [place] [address] Assigned PCP 09/25/18 09/23/19 Obdulio Menjivar PA-C [address] [place] [id number] Assigned PCP 09/24/19 03/30/20 [place] [address] [place] [address] Assigned PCP 03/31/20 09/27/21 Janie Hawk CNM [address] [place], [place] [address] Assigned OBGYN Provider 06/14/2007/06 Shauna Jeffery APRN CNM [address] [place] [address], [address] [address] Assigned OBGYN Provider 07/07/20 Fatuma Luke APRN CNM [address] [place] [address] Assigned OBGYN Provider 10/19/21 [place] [address] [place] [address] Assigned PCP 10/12/21 documented as of this encounter
--- OUTSIDE RECORDS SUMMARY | 2024-01-13 10:34 | XMS_ITS | Encounter Summary ---
Author Organization [facility] Address [address] [place] [address] Care Team Providers Care Plastic Shaper Name Role Phone Don Watson MD Primary Care Provider Marya Tovar MD Primary Care Provider + Obdulio Menjivar PA-C Unavailable [phone] Mindi Donnelly MD Unavailable [phone] Jennifer Hull MD Unavailable [phone] Obdulio Menjivar PA-C Unavailable Jennifer Hull MD Unavailable [phone] No Ref-Primary, Physician Primary Care Provider Obdulio Menjivar PA-C Unavailable Jennifer Hull MD Unavailable [phone] Janie Hawk CNM Unavailable Shauna Jeffery PATENT LEGAL ASSISTANT CNM Unavailab le Fatuma Luke PATENT LEGAL ASSISTANT CNM Unavailable [phone] Sarwat Sandy DO Unavailable [facility] re Provider Encounter Details Date Type Department Care Team (Late st Contact Info) Description 09/17/2010 MyC Medical Advice [address] [address] [facility] Social History Tobacco Use Types Packs/Day Years [...] on filedocumented in this encounter Care Teams Plastic Shaper Relationship Specialty Start Date End Date Don Watson MD [facility] 8080 [facility] 200 [place] [address] PCP - General 03/05/06 07/10/12 Marya Tovar MD [facility] 8080 [facility] 200 [place] [address] PCP - General saddle stitching machine operator 07/11/12 03/22/19 Obdulio Menjivar PA-C [address] [place] [address] PCP - Assigned PCP 06/26/18 09/24/18 [place] [address] [place] [address] PCP - Assigned PCP 10/31/17 06/25/18 [place] [address] [place] [address] PCP - Assigned PCP 09/25/18 10/25/18 No Ref-Primary, Physician PCP - General 07/28/19 02/26/23 [facility] [address] [place] [address] PCP - General 02/27/23 Obdulio Menjivar PA-C [address] [place] [address] Assigned PCP 06/26/18 09/24/18 [place] [address] [place] [address] Assigned PCP 09/25/18 09/23/19 Obdulio Menjivar PA-C [address] [place] [address] Assigned PCP 09/24/19 03/30/20 [place] [address] [place] [address] Assigned PCP 03/31/20 09/27/21 Janie Hawk CNM [address] [place] [address] Assigned OBGYN Provider 06/14/2007/06 Shauna Jeffery APRN CNJosue [address] [place] [address] Assigned OBGYN Provider 07/07/20 Fatuma Luke APRN CNM [address] [place] [address] Assigned OBGYN Provider 10/19/21 [place] [address] [place] [address] Assigned PCP 10/12/21 documented as of this encounter
--- OUTSIDE RECORDS SUMMARY | 2024-01-13 10:34 | XMS_ITS | Clinical Summary ---
Author Organization [facility] Address [address] [place] [address] Care Team Providers Care Hand Lacer Name Role Phone Unavailable Primary Care Provider Unavailabl e Source Comments You are receiving this document as you are listed as the primary care provider,follow-up provider, or the patient has been referred to you for consultation.This is in compliance with the Medicare andMedicaid EHR Incentive Program,which states Providers who transition their patient to another setting of careor provider of care or refers their patient to another provider of care shouldprovide summary care record for each transition of care or referral. [facility] Allergies No known active allergies Medications Medication Sig Dispensed Refills Start Date End Date Status ferrous sulfate 325 (65 Fe) MG tablet Take 325 mg by mouth daily with breakfast. Active Social History Tobacco Use Types Packs/Day Years Used Date Smoking Tobacco: Never Assessed Sex and Gender Information Value Date Recorded Sex Assigned at Not on file Gender Identity Not on file Sexual Orientation Not on file Plan of Treatment Health Maintenance Due Date Last Done Comments Cervical Cancer Screening Due 1984 Hep C Screening (Preventive Services) 1984 HIV Screening (Preventive Services) 2000 Adult Preventive Visit 2002 HepB (1) 2003 COVID-19 Vaccine ( season) 2023 Influenza (Season Ended) 2024 018, 06/15/2014, 07/22/2012, Additional history exists DTaP/Tdap/Td (3 - [...]
--- OUTSIDE RECORDS SUMMARY | 2024-01-13 10:34 | XMS_ITS | Clinical Summary ---
Author Organization [facility] Address [place], [place] [address] Care Team Providers Care Manager Linux Name Role Phone , No Primary Primary Care Provider Unavailabl e Social History Tobacco Use Types Packs/Day Years Used Date Smoking Tobacco: Never Assessed Sex and Gender Information Value Date Recorded Sex Assigned at Not on file Gender Identity Not on file Sexual Orientation Not on file Plan of Treatment Not on file Care Teams Manager Linux Relationship Specialty Start Date End Date , No Primary . PCP - General 04/12/08
--- OUTSIDE RECORDS SUMMARY | 2024-01-13 10:34 | XMS_ITS | Encounter Summary ---
Author Organization [facility] Address [address] [place] [address]. [place] [address] Care Team Providers Care Program Schedule Clerk Name Role Phone No Ref-Primary, Physician Primary Care Provider Fatuma Luke APRN CNM Unavailable [phone] Sarwat Sandy DO Unavailable [phone] Clinic - [facility] Primary Ca re Provider Encounter Details Date Type Department Care Team (Late st Contact Info) Description 12/29/2021 [facility] Medical Advice [facility] [address] [facility] [address] [place] [id number] Sima Fall RN Social History Tobacco Use [...] Total Score: 0 10/08/19 22 8:00 AM RAILROAD CAR REPAIR SUPERVISOR documented as of this encounter Care Teams Program Schedule Clerk Relationship Specialty Start Date End Date No Ref-Primary, Physician PCP - General 07/28/19 02/26/23 [facility] [address] [place] [address] PCP - General 02/27/23 Fatuma Luke APRN CN [address] [place] [address] Assigned OBGYN Provider 10/19/21 [place] [address] [place] [address] Assigned PCP 10/12/21 documented as of this encounter
--- OUTSIDE RECORDS SUMMARY | 2024-01-13 10:34 | XMS_ITS | Encounter Summary ---
Author Organization [facility] Address [address] [place] [address] Care Team Providers Care Front Office Manager Name Role Phone Don Watson MD Primary Care Provider Marya Tovar MD Primary Care Provider + Obdulio Menjivar PA-C Unavailable [phone] Mindi Donnelly MD Unavailable [phone] Jennifer Hull MD Unavailable [phone] Obdulio Menjivar PA-C Unavailable Jennifer Hull MD Unavailable [phone] No Ref-Primary, Physician Primary Care Provider Obdulio Menjivar PA-C Unavailable Jennifer Hull MD Unavailable [phone] Janie Hawk CNM Unavailable Shauna Jeffery TRANSPORTATION COORDINATOR CNM Unavailab le Fatuma Luke TRANSPORTATION COORDINATOR CNM Unavailable [phone] Sarwat Sandy DO Unavailable [phone] 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 07/11/12 03/22/19 Obdulio Menjivar PA-C [address] [place] [address] PCP - Assigned PCP 06/26/18 09/24/18 [place] [address] [place] [address] PCP - Assigned PCP 10/31/17 06/25/18 [place] [address] [place] [address] PCP - Assigned PCP 09/25/18 10/25/18 No Ref-Primary, Physician PCP - General 07/28/19 02/26/23 [facility] [id number] [place] [address] PCP - General 02/27/23 Obdulio Menjivar PA-C [address] [place] [address] Assigned PCP 06/26/18 09/24/18 [place] [address] [place] [address] Assigned PCP 09/25/18 09/23/19 Obdulio Menjivar PA-C [address] [place] [address] Assigned PCP 09/24/19 03/30/20 [place] [address] [place] [address] Assigned PCP 03/31/20 09/27/21 Janie Hawk CNM [address] [place], [place] [id number] Assigned OBGYN Provider 06/14/2007/06 Shauna Jeffery APRN CNM [address] [place] [address], [address] [address] Assigned OBGYN Provider 07/07/20 Fatuma Luke APRN CNM [address] [address] Assigned OBGYN Provider 10/19/21 [place] [address] [place] [address] Assigned PCP 10/12/21 documented as of this encounter
--- OUTSIDE RECORDS SUMMARY | 2024-01-13 10:34 | XMS_ITS | Encounter Summary ---
Author Organization [facility] Address [address] [place] [address]. [place] [address] Care Team Providers Care Soubrette Name Role Phone Jennifer Hull MD Unavailable [phone] No Ref-Primary, Physician Primary Care Provider Obdulio Menjivar PA-C Unavailable Jennifer Hull MD Unavailable [phone] Janie Hawk CNM Unavailable [phone] Shauna Jeffery CABINET WORKER CNM Unavailab le Fatuma Luke CABINET WORKER CNM Unavailable [phone] Sarwat Sandy DO Unavailable [phone] Clinic - 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 [address] [place] [address] PCP - General 02/27/23 [place] [address] [place] [address] Assigned PCP 09/25/18 09/23/19 Obdulio Menjivar PA-C [address] [place] [address] Assigned PCP 09/24/19 03/30/20 [place] [address] [place] [address] Assigned PCP 03/31/20 09/27/21 Janie Hawk CNM [address] [place] [address] Assigned OBGYN Provider 06/14/2007/06 Shauna Jeffery APRN CNM [address] [facility] [address] [address] Assigned OBGYN Provider 07/07/20 Fatuma Luke APRN CNM [address] [place] [address] Assigned OBGYN Provider 10/19/21 [place] [address] [place] [address] Assigned PCP 10/12/21 documented as of this encounter
--- OUTSIDE RECORDS SUMMARY | 2024-01-13 10:34 | XMS_ITS | Encounter Summary ---
Author Organization [facility] Address [address] [place] [address]. [place] [address] Care Team Providers Care Physics Department Chair Name Role Phone No Ref-Primary, Physician Primary Care Provider Shauna Jeffery CAREER BASED INTERVENTION COORDINATOR CNM Unavailab le Fatuma Luke CAREER BASED INTERVENTION COORDINATOR CNM Unavailable [phone] Sarwat Sandy DO Unavailable [phone] Clinic - [facility] Primary Ca re Provider Encounter Details Date Type Department Care Team (Late st Contact Info) Description 10/13/2021 Orders Only [facility] [address] [place] [address] Margaret Ashley History of iron [...] COVID-19? No / Unsure 10/16/2021 12:53 PM MECHANICAL METER TESTER documented as of this encounter Plan of Treatment Not on file documented as of this encounter Procedures Procedure Name Priority Date/Time Associated Diagnosis Comments CBC WITH PLATELETS AND REFLEX TO IRON STUDIES Routine 10/13/2021 2:39 PM MECHANICAL METER TESTER History of iron deficiency anemia EXTRA GREEN TOP (LITHIUM HEPARIN) TUBE Routine 10/13/2021 2:39 PM MECHANICAL METER TESTER History of iron deficiency anemia CBC WITH PLATELETS AND REFLEX TO IRON STUDIES Routine 10/13/2021 2:39 PM MECHANICAL METER TESTER History of iron deficiency anemia IRON AND IRON BINDING CAPACITY Routine 10/13/2021 2:39 PM MECHANICAL METER TESTER History of iron deficiency anemia FERRITIN Routine 10/13/2021 2:39 PM MECHANICAL METER TESTER History of iron deficiency anemia documented in this encounter Results * (ABNORMAL) Ferritin (10/13/2021 2:39 PM MECHANICAL METER TESTER) Ferritin 5(L) 12 - 150 ng/mL 10/14/2021 11:55 AM MECHANICAL METER TESTER [facility] Blood STRUCTURE OF LEFT UPPER LIMB / Unknown Venipuncture / Unknown 10/13/2021 2:39 PM MECHANICAL METER TESTER 10/13/2021 2:56 PM MECHANICAL METER TESTER Fatuma Luke APRN, CNM LAB - BLOOD [facility] [address] Lab (no room number, 1st floor of clinic) [place] [address], [facility] [phone] * (ABNORMAL) Iron & Iron Binding Capacity (10/13/2021 2:39 PM MECHANICAL METER TESTER) Iron 43 35 - 180 ug/dL 10/14/2021 11:54 AM MECHANICAL METER TESTER [facility] Iron Binding Capacity 379 240 - 430 ug/dL 10/14/2021 11:54 AM MECHANICAL METER TESTER [facility] Iron Sat Index 11(L) 15 - 46 % 10/14/2021 11:54 AM MECHANICAL METER TESTER [facility] Blood STRUCTURE OF LEFT UPPER LIMB / Unknown Venipuncture / Unknown 10/13/2021 2:39 PM MECHANICAL METER TESTER 10/13/2021 2:56 PM MECHANICAL METER TESTER Fatuma Luke APRN [facility] - BLOOD [facility] [address] Lab (no room number, 1st floor of [facility]) [place] [address], [facility] [phone] * Extra Green Top ([place] Heparin) Tube (10/13/2021 2:39 PM MECHANICAL METER TESTER) Pathologist [facility] Hold Specimen JIC 10/13/2021 3:47 PM MECHANICAL METER TESTER [facility] Blood STRUCTURE OF LEFT UPPER LIMB / Unknown Venipuncture / Unknown 10/13/2021 2:39 PM MECHANICAL METER TESTER 10/13/2021 2:39 PM MECHANICAL METER TESTER Fatuma Luke APRN [facility] LAB - BLOOD [facility] [address], [address] [place] [address], [facility] [phone] * (ABNORMAL) CBC with Platelets and Reflex to Iron Studies (10/13/2021 2:39 PM MECHANICAL METER TESTER) WBC Count 8.3 4.0 - 11.0 10e3/uL 10/13/2021 3:02 PM MECHANICAL METER TESTER [facility] RBC Count 3.94 3.80 - 5.20 10e6/uL 10/13/2021 3:02 PM MECHANICAL METER TESTER [facility] Hemoglobin 10.5(L) 11.7 - 15.7 g/dL 10/13/2021 3:02 PM MECHANICAL METER TESTER [facility] Hematocrit 33.4(L) 35.0 - 47.0 % 10/13/2021 3:02 PM MECHANICAL METER TESTER [facility] MCV 85 78 - 100 fL 10/13/2021 3:02 PM MECHANICAL METER TESTER [facility] MCH 26.6 26.5 - 33.0 pg 10/13/2021 3:02 PM MECHANICAL METER TESTER [facility] MCHC 31.4(L) 31.5 - 36.5 g/dL 10/13/2021 3:02 PM MECHANICAL METER TESTER [facility] RDW 15.6(H) 10.0 - 15.0 % 10/13/2021 3:02 PM MECHANICAL METER TESTER [facility] Platelet Count 280 150 - 450 10e3/uL 10/13/2021 3:02 PM MECHANICAL METER TESTER [facility] Blood STRUCTURE OF LEFT UPPER LIMB / Unknown Venipuncture / Unknown 10/13/2021 2:39 PM MECHANICAL METER TESTER 10/13/2021 2:39 PM MECHANICAL METER TESTER Fatuma Luke APRN, CNM LAB - BLOOD [facility] [address], [address] [place] [address] [phone] documented in this encounter Visit Diagnoses Diagnosis History of iron deficiency anemia Personal history of diseases of blood and blood-forming organs documented in this encounter Additional Health Concerns Assessment Noted Time PHQ-9 Depression Total Score: 0 10/08/19 8:00 AM MECHANICAL METER TESTER documented as of this encounter Care Teams Physics Department Chair Relationship Specialty Start Date End Date No Ref-Primary, Physician PCP - General 07/28/19 02/26/23 [facility] [address] [place] [address] PCP - General 02/27/23 Shauna Jeffery APRN CNM [address] [address] [facility] [address] [place] [address] Assigned OBGYN Provider 07/07/20 Fatuma Luke APRN CNM [address] [place] [address] Assigned OBGYN Provider 10/19/21 [place] [address] [place] [address] Assigned PCP 10/12/21 documented as of this encounter
== END 2024-01-13 10:31 | disposition home or self-care (01) ==
LOC: LKVREF 10:31
PROVIDERS: PCP Nurse Practitioner Family; Visit Provider Nurse Practitioner Family
DX: Z13.220 Encounter for screening for lipoid disorders (principal)
CPT/HCPCS: 80061